=== PATIENT | female | born 1935 | race Caucasian/White ===

== ENCOUNTER 2019-06-05 15:23 | Emergency (ER) | payer OTHER ==
--- OUTSIDE RECORDS SUMMARY | 2019-06-05 15:26 | XMS REPORT | Clinical Summary ---
:1935 Author Organization [facility] Address [address] [place] [address] Care Team Providers Name Role Phone Rene Bay MD Primary Care Provider Allergies Active Allergy Reactions Severity Noted Date Comments Codeine 10/19/2016 Other reaction(s): Other Medications Medication Sig Dispensed Refills Start Date End Date Status aspirin (ECOTRIN) Take 1 tablet 0 Active 81 MG enteric every day by coated tablet oral route. tamsulosin (FLOMAX) Take 1 capsule 0 09/29/2016 Active 0.4 mg by mouth capsule,extended daily. release 24hr FLUoxetine (PROzac) TK 1 C PO QD 2 10/02/2018 Active 20 MG capsule calcium carbonate Take by mouth 0 Active (CALCIUM 500 ORAL) daily. atorvastatin TAKE 1 TABLET 90 tablet 4 04/03/2019 Active (LIPITOR) 80 MG BY MOUTH EVERY tablet DAY alendronate Take 70 mg by 1 04/19/2019 Active (FOSAMAX) 70 MG mouth once a tablet week. simethicone Take by mouth 0 Active (PHAZYME) 250 mg daily. capsule atorvastatin TAKE 1 TABLET 90 tablet 4 01/12/2018 04/03/2019 Discontinued (LIPITOR) 80 MG BY MOUTH EVERY tablet DAY vit Take by mouth. 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 Encounters Date Type Specialty Care Team Description 05/11/2019 Telephone Neurology Ronal Fox MD 05/04/2019 Lab Lab Ronal Fox MD Stenosis of carotid artery, unspecified laterality 05/04/2019 Office Visit Neurology Ronal Fox MD Stenosis of carotid artery, unspecified laterality (Primary Dx) 04/03/2019 Refill Neurology Ronal Fox MD 10/24/2018 Office Visit Neurology Ronal Fox MD Stenosis of carotid artery, unspecified laterality (Primary Dx) 08/31/2018 Transcribe Orders Neurology Ronal Fox MD Bilateral carotid artery stenosis (Primary Dx) after 06/04/2018 Family History Medical History Relation Name Comments Dementia Mother Parkinsonism Sister Multiple sclerosis Son Relation Name Status Comments Mother (Age 80) Sister Son Social History Tobacco Use Types Packs/Day Years Used Date Former Smoker Smokeless Tobacco: Never Used Alcohol Use Drinks/Week oz/Week Comments No Sex Assigned at Date Recorded Not on file Job Start Date Occupation Industry Not on file Not on file Not on file Travel History Travel Start Travel End No recent travel history available. Last Filed Vital Signs Vital Sign Reading Time Taken Blood Pressure 144/65 05/04/2019 10:06 AM CDT Pulse 71 05/04/2019 10:06 AM CDT Temperature - - Respiratory Rate - - Oxygen Saturation - - Inhaled Oxygen Concentration - - Weight 64 kg (141 lb) 05/04/2019 10:06 AM CDT Height 160 cm (5' 3") 05/04/2019 10:06 AM CDT Body Mass Index 24.98 05/04/2019 10:06 AM CDT Plan of Treatment Health Maintenance Due Date Last Done Comments SHINGLES VACCINES (#1) 1986 65+ PNEUMOCOCCAL VACCINE (1 of 2 - PCV13) 2001 INFLUENZA VACCINE 06/29/2019 Procedures Procedure Name Priority Date/Time Associated Comments Diagnosis COMPREHENSIVE Routine 05/04/2019 10:49 Stenosis of carotid Results for this METABOLIC PANEL AM CDT artery, unspecified procedure are in laterality the results section. LIPID PANEL Routine 05/04/2019 10:49 Stenosis of carotid Results for this AM CDT artery, unspecified procedure are in laterality the results section. PV TRANSCRANIAL Routine 10/24/2018 4:00 Bilateral carotid Results for this DOPPLER INTRACRANIAL PM [employer] artery stenosis procedure are in ARTERIES COMPLETE the results section. US CAROTID DUPLEX Routine 10/24/2018 4:00 Bilateral carotid Results for this BILATERAL PM [employer] artery stenosis procedure are in the results section. after 06/04/2018 Results Lipid panel (05/04/2019 10:49 AM CDT) Cholesterol, total 129 <200 mg/dL [facility] [place] HDL cholesterol 55 >50 mg/dL [facility] [place] Triglycerides 52 <150 mg/dL [facility] [place] LDL cholesterol 61 mg/dL (calc) [facility] calculated Comment: [place] Reference range: <100 Desirable range <100 mg/dL for primary prevention; <70 mg/dL for patients with CHD or diabetic patients with > or=2 CHD risk factors. LDL-C is now calculated using the Juni calculation, which is a validated novel method providing better accuracy than the Friedewald equation in the estimation of LDL-C. Ryan RUTLEDGE et al. STEVE. 2013;310(19): 6083-0106 (http://education.Bocom/faq/LTV473) Cholesterol/HDL 2.3 <5.0 (calc) [facility] ratio [place] Non-HDL cholesterol 74 <130 mg/dL [facility] Comment: (calc) [place] For patients with diabetes plus 1 major ASCVD risk factor, treating to a non-HDL-C goal of <100 mg/dL (LDL-C of <70 mg/dL) is considered a therapeutic option. Specimen Blood Resulting Agency Comment Performing Organization Information: Site ID: [id number] Address: [address] [place] [id number] Director: Letitia Montelongo Performing Organization Address City/State/Zipcode Phone [place] [employer] [address] Comprehensive metabolic panel (05/04/2019 10:49 AM CDT) [facility] Glucose 88 65 - 99 [facility] Comment: mg/dL [place] Fasting reference interval BUN, whole blood 14 7 - 25 mg/dL [facility] [place] Creatinine 0.68 0.60 - 0.88 [facility] Comment: mg/dL [place] For patients >49 years of age, the reference limit for Creatinine is approximately 13% higher for people identified as -Micronesian. EGFR Non-Afr. 81 > OR=60 [facility] [place] mL/min/1.73m [place] 2 EGFR 94 > OR=60 [facility] [place] mL/min/1.73m [place] [id number] BUN/creatinine NOT APPLICABLE 6 - 22 [facility] ratio (calc) [place] Sodium 133 (L) 135 - 146 [facility] mmol/L [place] Potassium 5.0 3.5 - 5.3 [facility] mmol/L [place] Chloride 95 (L) 98 - 110 [facility] mmol/L [place] CO2 31 20 - 32 [facility] mmol/L [place] Calcium 9.2 8.6 - 10.4 [facility] mg/dL [place] Protein 6.6 6.1 - 8.1 [facility] g/dL [place] Albumin, S 4.2 3.6 - 5.1 [facility] g/dL [place] Globulin, total 2.4 1.9 - 3.7 [facility] g/dL (calc) [place] Albumin/globulin 1.8 1.0 - 2.5 [facility] ratio (calc) [place] Total bilirubin 1.0 0.2 - 1.2 [facility] mg/dL [place] Alkaline 96 33 - 130 U/L [facility] phosphatase [place] AST 20 10 - 35 U/L [facility] [place] ALT 14 6 - 29 U/L [facility] [place] Specimen Blood Resulting Agency Comment Performing Organization Information: Site ID: [id number] Name: [facility] Address: [address] [place] [id number] Director: Letitia Montelongo Performing Organization Address City/[facility] Phone Number [employer] [place] [phone] Pv transcranial Doppler intracranial arteries (10/24/2018 4:00 PM [employer]ESSION[employer]) Specimen Narrative Performed At Clinical Indications/Diagnosis: [facility] Equipment: [place] PMD 150 Vessel RIGHTLEFT Ophthalmic Artery Antegrade Antegrade Siphon bruit bruit Anterior Cerebral Artery Not Seen Not Seen Middle Cerebral Artery Not Seen Not Seen Posterior Cerebral ArteryNormal Normal Verterbral Artery dampened Normal Basilic Artery Normal Normal TCD MonitoringNegative Negative BHI: >0.69 (normal) Not Seen Not Seen Head Turning Findings: Technically limited study normal distal ICA and dampened to minimal vertibrobasilar flow seen. bilateral suboptimal temporal windows. Negative spontaneous emboli were detected. Physician Interpretation of TCD: 1) There is no stenosis in the distal internal carotid arteries or vertebrobasilar arteries. 2) No hemodynamically significant intracranial stenoses in the major branches of the [place]. 3) No spontaneous emboli were detected during monitoring. 4) The cerebrovascular reserve is normal on breath holding. Recommend ultrasound follow-up in 1-2 years or sooner if symptoms develop. Performing Organization Address City[facility] Phone Number [facility] [id number] [place] [address] Pv carotid duplex (10/24/2018 4:00 PM YOU[employer] PROFESSIONAL) L ECA Prox 8.00 cm/s cm/s [facility] L ECA Prox 178 cm/s cm/s [facility] R ECA Prox 5.00 cm/s cm/s [facility] L ICA Prox 25 cm/s cm/s [facility] L ICA Prox 180 cm/s cm/s [facility] R ICA Prox 38 cm/s cm/s [facility] R ICA Prox 155 cm/s cm/s [facility] L ICA/CCA Ratio 1.6 cm/s [facility] R ICA/CCA Ratio 2.2 cm/s [facility] R CCA Prox 9 cm/s cm/s [facility] R CCA Prox 83 cm/s cm/s [facility] R ICA Dist 22 cm/s cm/s [facility] R ICA Mid 27 cm/s cm/s [facility] L ICA Dist 23 cm/s cm/s [facility] L ICA DIST 106 cm/s cm/s [facility] R Vert Art 16.00 cm/s cm/s [facility] L CCA Dist 22 cm/s cm/s [facility] L CCA Dist 115 cm/s cm/s [facility] R ECA Prox 124.00 cm/s cm/s [facility] L ICA Mid 20 cm/s cm/s [facility] L ICA Mid 108 cm/s cm/s [facility] R ICA Dist 83 cm/s cm/s [facility] R ICA Mid 183 cm/s cm/s [facility] L Vert Art 20.00 cm/s cm/s [facility] L Vert Art 171 cm/s cm/s [facility] R Vert Art 58.00 cm/s cm/s [facility] Specimen Narrative Performed At Physician Interpretation of Carotid Doppler: [facility] 1) There is moderate, calcified plaque in the bilateral carotid arteries with less than 50% stenosis. 2) There are no hemodynamically significant stenoses. 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 4) The left vertebral artery flows antegrade. Recommend ultrasound follow-up in 1-2 years or sooner if symptoms develop. Performing Organization Address City/State/Zipcode Phone Number [facility] [address] [place] [address] after 06/04/2018 (Home) [place] [address] Advance Directives Patient has advance care planning documents on file. For more information, please contact:John Harmon[address] [place] [address]
[2019-06-05 16:16] LABS: Absolute Lymphocytes (CBC) 1.6 K/uL (0.7-4.9); Basophils % 0.4 % (0-1.3); Eosinophils % 0.3 % (0-4.4); Hematocrit 40.3 % (36.0-45.0); Lymphocytes % 13.3 % (15.3-44.8); MPV 8.6 fL (7.6-11.3); Monocytes % 12.8 % (3.3-12.3); RBC Red Blood Cell Count 4.28 M/uL (3.86-4.86)
[2019-06-05 16:17] LABS: Protime INR 1.06
--- NOTE | 2019-06-05 16:19 | EKG ---
Test Date: 2019-06-05 Test Time: 15:59:45 Manufacturing Mechanic: DENG MEASUREMENT RESULTS: Intervals: Rate: 69 IA: 168 QRSD: 86 QT: 396 QTc: 424 [place]: P: 74 IA: 168 QRS: 80 T: 66 INTERPRETIVE STATEMENTS: Normal sinus rhythm Possible Left atrial enlargement Borderline ECG No previous ECG available for comparison Electronically Signed On 06-05-19 16:19:16 CDT by Jered Carpenter
[2019-06-05 16:36] LABS: ALT/SGPT 21 U/L (12-78); AST/SGOT 19 U/L (15-37); Albumin 3.5 g/dL (3.4-5.0); Alkaline Phosphatase 75 U/L (45-117); BUN Blood Urea Nitrogen 16 mg/dL (7-18); Bicarbonate 27 mmol/L (21-32); Bilirubin Direct 0.3 mg/dL (0-0.2); Bilirubin Total 1.3 mg/dL (0.2-1.0); Glucose Level 88 mg/dL (74-106); Magnesium 2.2 mg/dL (1.8-2.4); NT PRO-BNP 124 pg/mL (<450); Protein, Total 7.1 g/dL (6.4-8.2); Sodium Level 132 mmol/L (136-145); Troponin (Emerg Dept Use Only) < 0.02 ng/mL (0.0-0.045)
--- NOTE | 2019-06-05 17:07 | RAD REPORT ---
EXAM DESCRIPTION: Karime Single View06/05/2019 4:56 pm CLINICAL HISTORY: sob COMPARISON: November 2017 FINDINGS: The lungs appear clear of acute infiltrate. The heart is normal size IMPRESSION: No acute abnormalities displayed
[2019-06-05 17:21] LABS: Blood Morphology Comment NOT SEEN (NOT SEEN); Platelet Estimate ADEQ
[2019-06-05 18:07] LABS: Urine Blood 1+ (NEG); Urine Glucose NEGATIVE (NEG); Urine Protein TRACE (NEG)
--- NOTE | 2019-06-05 18:16 | ER ---
Nurse's Notes [facility] Name: Drea Diez Age: 84 yrs Sex: Female : 1935 Arrival Date: 06/05/2019 Time: 15:24 Bed 3 Private MD: Rene Bay F Diagnosis: Acute cystitis Presentation: 06/05 15:30 Presenting complaint: Patient states: "[place] the [place] and I always check my blood aa5 pressure there so today I checked it and it was 68/42 and then 69/43 and my pulse was 113". Pt states "I've been feeling dizzy and exhausted for a while now". 15:30 Transition of care: patient was not received from another setting of care. Onset of aa5 symptoms was June 05, 2019. Risk Assessment: Do you want to hurt yourself or someone else? Patient reports no desire to harm self or others. Care prior to arrival: None. 15:30 Acuity: KAMILA 2 aa5 15:30 Method Of Arrival: Wheelchair aa5 16:05 Initial Sepsis Screen: Does the patient meet any 2 criteria? No. Patient's initial sv sepsis screen is negative. Does the patient have a suspected source of infection? No. Patient's initial sepsis screen is negative. Historical: - Allergies: 15:30 No Known Allergies; aa5 - Home Meds: 15:30 None [Active]; aa5 - PMHx: 15:30 None; aa5 - PSHx: 15:30 Hysterectomy; Bladder suspension; aa5 - Immunization history:: Adult Immunizations up to date. - Ebola Screening: : No symptoms or risks identified at this time. - Social history:: Smoking status: Patient/guardian denies using tobacco. Screenin:05 Abuse screen: Denies threats or abuse. Denies injuries from another. Nutritional sv screening: No deficits noted. Tuberculosis screening: No symptoms or risk factors identified. Fall Risk None identified. Assessment: 16:00 General: Appears in no apparent distress. uncomfortable, well developed, Behavior is sv calm, cooperative, appropriate for age. Pain: Denies pain. Neuro: Level of Consciousness is awake, alert, obeys commands, Oriented to person, place, time, situation, Moves all extremities. Full function Speech is normal, Reports weakness. Respiratory: Airway is patent Respiratory effort is even, unlabored, Respiratory pattern is regular, symmetrical. Derm: Skin is normal. 18:44 Reassessment: Patient appears in no apparent distress at this time. No changes from sv previously documented assessment. Patient and/or family updated on plan of care and expected duration. Pain level reassessed. Patient is alert, oriented x 3, equal unlabored respirations, skin warm/dry/pink. Vital Signs: 15:32 BP 70 / 54; Pulse 86; Resp 16 S; Temp 98.1(O); Pulse Ox 98% on R/A; Pain 0/10; aa5 16:05 BP 113 / 56 RA Supine (auto/reg); Pulse 69; sv 16:07 BP 125 / 74 RA Sitting (auto/reg); Pulse 71; sv 16:09 BP 112 / 49 RA Standing (auto/reg); Pulse 80; sv 17:11 BP 149 / 72; Pulse 70; Resp 17 S; Pulse Ox 98% on R/A; sg 18:04 BP 159 / 86; Pulse 70; Resp 12; Pulse Ox 100% ; sv ED Course: 15:24 Patient arrived in ED. rg4 15:24 Rene Bay MD is Private Physician. rg4 15:37 Arm band placed on Patient placed in an exam room, on a stretcher. aa5 15:40 He Medel MD is Attending Physician. ps1 15:44 Triage completed. aa5 16:02 iMlady Martel, RN is Primary Nurse. sv 16:05 Patient has correct armband on for positive identification. Placed in gown. Bed in low sv position. Call light in reach. Side rails up X 1. Adult w/ patient. monitor tech on. Pulse ox on. NIBP on. Door closed. Head of bed elevated. 16:08 Initial lab(s) drawn, by me, sent to lab. EKG done, by plasma processing technician. reviewed by He Medel MD. Inserted saline lock: 20 gauge in left antecubital area, using aseptic technique. Blood collected. 16:16 Awaiting lab results. sv 16:56 XRAY Chest (1 view) In Process Unspecified. EDMS 17:26 ED physician to see patient. sv 18:12 Rene Bay MD is Referral Physician. ps1 18:44 No provider procedures requiring assistance completed. IV discontinued, intact, sv bleeding controlled, No redness/swelling at site. Pressure dressing applied. Administered Medications: No medications were administered Outcome: 18:16 Discharge ordered by . ps1 18:44 Discharged to home ambulatory, with family. sv 18:44 Condition: stable 18:44 Discharge instructions given to patient, Instructed on discharge instructions, follow up and referral plans. medication usage, Demonstrated understanding of instructions, follow-up care, medications, Prescriptions given X 1. 18:45 Patient left the ED. sv Addendum: 06/08/2019 11:17 Addendum: Culture Results: Positive urine culture. No further action required. Bacteria i w sensitive to prescribed antibiotic. Signatures: Dispatcher [employer] Milady Peña RN RN sv Gay, Steven, RN RN sg Williams, Irene, RN RN iw Solis, Maria ms Calderon, Audri, ONEYDA [email or web address] Justine [email or web address] He Medel MD MD ps1
--- NOTE | 2019-06-05 18:16 | EDPHYS ---
Physician Documentation [facility] Name: Drea Diez Age: 84 yrs Sex: Female : 1935 Arrival Date: 06/05/2019 Time: 15:24 Bed 3 Private MD: Rene Bay F ED Physician He Medel HPI: 06/05 16:01 This 84 yrs old Female presents to ER via Wheelchair with complaints of Blood ps1 Pressure Problem, lightheaded. 16:01 patient states that she has had intermittent periods of hypotension and lightheaded, ps1 states that she experiences symptoms when standing. She is on medication to assist her in using the bathroom. Went to PCP today and evaluated Dr. Bay. Patient remained symptomatic. States that she had an episode of vomiting a week ago. No CP, tightness, pressure. No diaphoresis. No room spinning. . Historical: - Allergies: 15:30 No Known Allergies; aa5 - Home Meds: 15:30 None [Active]; aa5 - PMHx: 15:30 None; aa5 - PSHx: 15:30 Hysterectomy; Bladder suspension; aa5 - Immunization history:: Adult Immunizations up to date. - Ebola Screening: : No symptoms or risks identified at this time. - Social history:: Smoking status: Patient/guardian denies using tobacco. ROS: 16:01 Constitutional: Negative for fever, chills, and weight loss, Eyes: Negative for injury, ps1 pain, redness, and discharge, Cardiovascular: Negative for chest pain, palpitations, and edema, Respiratory: Negative for shortness of breath, cough, wheezing, and pleuritic chest pain, Abdomen/GI: Negative for abdominal pain, nausea, vomiting, diarrhea, and constipation, MS/Extremity: Negative for injury and deformity, Skin: Negative for injury, rash, and discoloration, Psych: Negative for depression, anxiety, suicide ideation, homicidal ideation, and hallucinations. 16:01 Neuro: Positive for near syncope. Exam: 16:01 Constitutional: This is a well developed, well nourished patient who is awake, alert, ps1 and in no acute distress. Head/Face: Normocephalic, atraumatic. Eyes: Pupils equal round and reactive to light, extra-ocular motions intact. Lids and lashes normal. Conjunctiva and sclera are non-icteric and not injected. ENT: Nares patent. No nasal discharge, no septal abnormalities noted. Tympanic membranes are normal and external auditory canals are clear. Oropharynx with no redness, swelling, or masses, exudates, or evidence of obstruction, uvula midline. Mucous membranes moist. Chest/axilla: Normal chest wall appearance and motion. Nontender with no deformity. No lesions are appreciated. Cardiovascular: Regular rate and rhythm. No gallops, murmurs, or rubs. Normal PMI, no JVD. No pulse deficits. Respiratory: Lungs have equal breath sounds bilaterally, clear to auscultation and percussion. No rales, rhonchi or wheezes noted. No increased work of breathing, no retractions or nasal flaring. Abdomen/GI: Soft, non-tender, with normal bowel sounds. No distension or tympany. No guarding or rebound. No evidence of tenderness throughout. Skin: Warm, dry with normal turgor. Normal color with no rashes, no lesions, and no evidence of cellulitis. MS/ Extremity: Pulses equal, no cyanosis. Neurovascular intact. Full, normal range of motion. Neuro: Awake and alert, GCS 15, oriented to person, place, time, and situation. Cranial nerves II-XII grossly intact. Sensory grossly intact. Vital Signs: 15:32 BP 70 / 54; Pulse 86; Resp 16 S; Temp 98.1(O); Pulse Ox 98% on R/A; Pain 0/10; aa5 16:05 BP 113 / 56 RA Supine (auto/reg); Pulse 69; sv 16:07 BP 125 / 74 RA Sitting (auto/reg); Pulse 71; sv 16:09 BP 112 / 49 RA Standing (auto/reg); Pulse 80; sv 17:11 BP 149 / 72; Pulse 70; Resp 17 S; Pulse Ox 98% on R/A; sg 18:04 BP 159 / 86; Pulse 70; Resp 12; Pulse Ox 100% ; sv MDM: 16:07 Patient medically screened. ps1 18:11 Data reviewed: vital signs, nurses notes, lab test result(s), EKG, radiologic studies, ps1 and as a result, I will discharge patient. Counseling: I had a detailed discussion with the patient and/or guardian regarding: the historical points, exam findings, and any diagnostic results supporting the discharge/admit diagnosis, lab results, radiology results, the need for outpatient follow up. 06/05 16:00 Order name: CBC with Diff; Complete Time: 17:[address] [facility] 06/05 16:00 Order name: LFT's; Complete Time: 16:[address] [facility] 06/05 16:00 Order name: Magnesium; Complete Time: 16:[address] [facility] 06/05 16:00 Order name: NT PRO-BNP; Complete Time: 16:[address] [facility] 06/05 16:00 Order name: PT-INR; Complete Time: 16:[address] [facility] 06/05 16:00 Order name: Troponin (emerg Dept Use Only); Complete Time: 16:[address] [facility] 06/05 16:00 Order name: XRAY Chest (1 view); Complete Time: 17:[address] [facility] 06/05 16:00 Order name: EKG; Complete Time: 16:[address] [facility] 06/05 16:00 Order name: Cardiac monitoring; Complete Time: 16:[address] [facility] 06/05 16:00 Order name: CMP; Complete Time: 16:[address] [facility] 06/05 16:19 Order name: Manual Differential; Complete Time: 17:24 [facility] 06/05 18:01 Order name: Urine Microscopic Only [facility] 06/05 18:02 Order name: Urine Dipstick--Ancillary (enter results); Complete Time: 18:09 [facility] 06/05 18:30 Order name: Urine Culture [facility] 06/05 16:00 Order name: EKG - Nurse/Tech; Complete Time: 16:[address] [facility] 06/05 16:00 Order name: IV Saline Lock; Complete Time: 16:[address] [facility] 06/05 16:00 Order name: Labs collected and sent; Complete Time: 16:[address] [facility] 06/05 16:00 Order name: O2 Per Protocol; Complete Time: 16:[address] [facility] 06/05 16:00 Order name: O2 Sat Monitoring; Complete Time: 16:[address] [facility] 06/05 16:00 Order name: Orthostatics; Complete Time: 16:[address] [facility] 06/05 16:00 Order name: Urine Dipstick-Ancillary (obtain specimen); Complete Time: 18:04 ps1 EC:59 Rate is 69 beats/min. Rhythm is regular. QRS [place] is Normal. [place] interval is normal. QRS ps1 interval is normal. QT interval is normal. No Q waves. T waves are Normal. No ST changes noted. Clinical impression: Normal ECG. Interpreted by me. Administered Medications: No medications were administered Disposition: 06/05/19 18:16 Discharged to Home. Impression: Acute cystitis. - Condition is Stable. - Prescriptions for Keflex 500 mg Oral Capsule - take 1 capsule by ORAL route every 8 hours for 10 days; 30 capsule. - Medication Reconciliation Form, Thank You Letter, Antibiotic Education, Prescription Opioid Use form. - Follow up: Rene Bay MD; When: 48 Hours; Reason: Further diagnostic work-up, Recheck today's complaints, Continuance of care. Follow up: Emergency Department; When: As needed; Reason: Worsening of condition. - Problem is new. - Symptoms are unchanged. Signatures: Dispatcher [employer] Milady Peña RN RN Liz Sutton RN RN aa5 He Medel MD MD ps1 Corrections: (The following items were deleted from the chart) 18:45 18:16 06/05/2019 18:16 Discharged to Home. Impression: Acute cystitis. Condition is sv Stable. Forms are Medication Reconciliation Form, Thank You Letter, Antibiotic Education, Prescription Opioid Use. Follow up: Rene Bay; When: 48 Hours; Reason: Further diagnostic work-up, Recheck today's complaints, Continuance of care. Follow up: Emergency Department; When: As needed; Reason: Worsening of condition. Problem is new. Symptoms are unchanged. ps1
[2019-06-05 18:28] LABS: Urine Bacteria >50 /HPF (<20); Urine RBC <5 /HPF (NONE SEEN)
[2019-06-05 18:29] LABS: Urine Culture Reflex Order REFLEXED
== END 2019-06-05 18:45 | disposition home or self-care (01) ==
LOC: ER 15:23
DX: N30.00 Acute cystitis without hematuria (principal)
CPT/HCPCS: 36415; 71045; 80053; 80076; 81003; 81015; 83735; 83880; 84484; 85025; 85610; 87077; 87086; 87088; 87186; 93005; 99284

== ENCOUNTER 2022-10-05 06:30 | Day surgery (SDC) | payer OTHER ==
[2022-10-01 10:59] LABS: Absolute Lymphocytes (CBC) 1.9 K/uL (0.7-4.9); Hematocrit 39.3 % (36.0-45.0); Lymphocytes % 29.1 % (15.3-44.8); MCV 91.8 fL (80-100); MPV 7.7 fL (7.6-11.3); RBC Red Blood Cell Count 4.28 M/uL (3.86-4.86)
[2022-10-01 11:06] LABS: Protime INR 1.05
--- NOTE | 2022-10-01 11:07 | RAD REPORT ---
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 FINDINGS: The lungs are clear of an acute infiltrate, mass, failure or volume overload finding. Gran uloma seen in the upper left lung field. Prominent interstitial lung pattern matches comparison. Heart size is normal and central vasculature is within normal limits. No pleural effusion or pneu mothorax seen. Bones are osteopenic. Approximately 50% compression fractures are present in the T11 and T12 vertebra e unchanged from March 2022 imaging. No lytic or blastic component seen. No acute aortic finding. IMPRESSION: No acute cardiopulmonary process. Lower thoracic compression fractures stable from March imaging.
[2022-10-01 11:15] LABS: Potassium 4.8 mmol/L (3.5-5.1)
[2022-10-05] MEDS ORDERED: MIDAZOLAM HCL 2 MG/2 ML INJ ONE (06:40)
[2022-10-05] MEDS ORDERED: LIDOCAINE 1% 20 ML MDV ONE (06:40)
[2022-10-05] MEDS ORDERED: HEPA 1000U/500MLS 2,000 UNIT/1,000 ML BAG IV ONE (06:40)
[2022-10-05] MEDS ORDERED: FENTANYL CITR 100 MCG/2 ML ONE (06:40)
[2022-10-05] MEDS ORDERED: NITROGLYCERIN 100 MCG/ML SYR (for cath lab use only) IV ONE (06:41)
[2022-10-05] MEDS ORDERED: NITROGLYCERIN/D5W 25 MG/250 ML BTL IV ONE (06:41)
[2022-10-05] MEDS ORDERED: ATROPINE SULF 1 MG/10 ML SYR IV ONE (06:41)
[2022-10-05] MEDS ORDERED: NA CHLORIDE 0.9% 0 ML IV ONE (06:42)
[2022-10-05] MEDS ORDERED: NA CHLORIDE 0.9% 500 ML ONE (06:51)
[2022-10-05 09:37] VITALS: BP 130/54; O2SAT 100
--- NOTE | 2022-10-05 12:18 | EKG ---
Test Date: 2022-10-01 Test Time: 10:37:32 Marine Engine Mechanic: GERARDO MEASUREMENT RESULTS: Intervals: Rate: 74 NM: 178 QRSD: 134 QT: 406 QTc: 450 Wilmont: P: 77 NM: 178 QRS: 48 T: 97 INTERPRETIVE STATEMENTS: Normal sinus rhythm Possible Left atrial enlargement Left bundle branch block Abnormal ECG Compared to ECG 06/05/2019 15:59:45 Left bundle-branch block now present Electronically Signed On 10-05-22 12:14:12 CATALOG LIBRARIAN by Scott Friedman
--- NOTE | 2022-10-05 19:14 | OP ---
Date of Procedure: 10/05/2022 Surgeon: Jered Carpenter MD Room Cleaner: Ms. John Paul Meeks. Procedures Performed: She underwent left heart catheterization, selective coronary arteriogram, comm on femoral artery angiogram, selective bilateral carotid. Indication: CAD and CVD with positive stress test, positive carotid Doppler. History Of Present Illness: Ms. Diez is 87. No significant history. Recent abnormal stress test b ecause of atypical chest pain. Recent abnormal carotid Doppler. Description Of Procedure: Brought to the [employer] today as an outpatient, prepped and draped in rout ine sterile fashion. Given Versed and fentanyl for sedation. 6-Turkmen sheath introduced in the righ t common femoral artery successfully. We used a Seldinger technique and 10 cc of Xylocaine. Angiogr aphy there was normal. Angio-Seal was used to close the case. JL4 and JR4 catheters were used to do the left heart catheterization. She was found to be codominant. She had diffuse plaquing in the LA D, circumflex and RCA. She had a 50% distal stenosis of the LAD. JR4 catheter was used to select th e common carotid artery on the right and the left. She had normal bilateral common carotid arteries. She had a 60% stenosis in the right ICA, 90% stenosis in the right ECA, 50% stenosis in the left IC A. There were no complications. Estimated Blood Loss: 5 cc. Postoperative Diagnosis: Moderate CAD and CVD. Plan: For medical therapy. We will start her on statins high dose. She will be at bedrest for 2 ho urs after the procedure, and she will go home and see us in the office in 2 weeks. ELIZABETH/CARLOS Voice ID: [id number] Report ID: [id number]
== END 2022-10-05 09:40 | disposition home or self-care (01) ==
LOC: CCL 06:30
DX: I65.23 Occlusion and stenosis of bilateral carotid arteries (principal); I25.10 Atherosclerotic heart disease of native coronary artery without angina pectoris; I44.7 Left bundle-branch block, unspecified
CPT/HCPCS: 36222; 36415; 71046; 80048; 85025; 85610; 85730; 93005; 93454; C1760; C1893; G0269; J0583; J1644; J2250; J3010; J7040

== ENCOUNTER 2024-12-11 09:42 | Inpatient (IN) | payer OTHER ==
[2024-12-11 10:17] LABS: Absolute Lymphocytes (CBC) 0.8 K/uL (0.7-4.9); Absolute Monocytes 1.6 K/uL (0.1-1.3); Absolute Neutrophil 14.3 K/uL (1.8-8.0); Basophils % 0.2 % (0-1.3); Hematocrit 39.6 % (36.0-45.0); Hemoglobin 13.2 g/dL (12.0-15.0); Lymphocytes % 4.7 % (15.3-44.8); MCHC 33.4 g/dL (32.0-36.0); MCV 92.7 fL (80-100); MPV 8.2 fL (7.6-11.3); Monocytes % 9.4 % (3.3-12.3); Neutrophils % 85.7 % (41.7-73.7); Nucleated Red Blood Cells % 0.1 % (0-0); Platelets 260 thou/uL (152-406); RBC Red Blood Cell Count 4.27 M/uL (3.86-4.86); Red Cell Distribution Width 12.7 % (12.1-15.2)
[2024-12-11 10:29] LABS: Albumin 2.9 g/dL (3.4-5.0); Albumin/Globulin Ratio 0.7 (1.1-1.8); Anion Gap 7.5 mEq/L (5.0-15.0); Bilirubin Total 1.5 mg/dL (0.2-1.0); Potassium 3.5 mEq/L (3.5-5.1); Protein, Total 6.9 g/dL (6.4-8.2)
--- NOTE | 2024-12-11 10:48 | RAD REPORT ---
EXAMINATION: CT HEAD WITHOUT CONTRAST CT CERVICAL SPINE WITHOUT CONTRAST CLINICAL INDICATION: Head and neck injury status post fall. Head and neck pain TECHNIQUE: Axial CT images from the skull base to the vertex without intravenous contrast. Axial CT i mages through the cervical spine were obtained without intravenous contrast. Sagittal and coronal reformatted images were created from the data set. Coronal and sagittal reformatted images were creat ed from the data set. One or more of the following dose reduction techniques were used: Automated exposure control, adjustment of the mA and/or kV according to patient size, and/or iterative reconstr uction. Unless otherwise specified, incidental findings do not require dedicated imaging follow-up. [id number]. Comparison: 2017 MRI brain FINDINGS: An intracranial bleed is not seen. Ventricles are normal in caliber. Moderate low-density within periventricular, deep and subcortical white matter may represent ischemic changes secondary to small vessel disease. No extra-axial fluid collection. Fluid within the sphenoid sinus may indicate acute sinusitis. No fracture or dislocation is seen involving the cervical spine. IMPRESSION: No acute intracranial abnormality noted A cervical fracture is not seen. If the patient continues to have symptoms to suggest acute GREENSKEEPER HEAD/spinal pathology then MRI would be rec ommended
--- NOTE | 2024-12-11 10:52 | RAD REPORT ---
EXAMINATION: CT ABDOMEN AND PELVIS WITHOUT CONTRAST CLINICAL INDICATION: Abdominal pain status post fall TECHNIQUE: CT abdomen and pelvis was performed, as per department protocol. IV contrast and oral was not administered.Axial, sagittal and coronal reconstructions were obtained. One or more of the following dose reduction techniques were used: Automated exposure control, adjustment of the mA and/o r kV according to the patient size, and/or iterative reconstruction. Unless otherwise specified, incidental findings do not require dedicated imaging follow-up. [id number]. COMPARISON: 2021 FINDINGS: The lack of intravenous and oral contrast limits evaluation of solid organs, vessels and bowel. The liver, spleen, pancreas, adrenals, bladder and kidneys appear grossly normal No evidence of diverticulitis Chronic compression deformities involve T11, T12 and L4 vertebral bodies. Mild chronic anterior sublu xation L3 on L4. Mild anterior chronic subluxation L4 on L5. Spondylosis lumbar spine results in spinal stenosis The bladder is distended. A moderate amount of stools present throughout the colon IMPRESSION: No acute traumatic injury involving the abdomen/pelvis seen
--- NOTE | 2024-12-11 11:00 | RAD REPORT ---
Procedure: Chest Single View HISTORY: Chest pain COMPARISON: 2021 FINDINGS: The lungs appear clear of acute infiltrate. No significant pleural effusion noted. The heart is normal size. IMPRESSION: No acute abnormality is displayed.
[2024-12-11 11:15] LABS: Sqamous Epithelial None Seen /HPF (None Seen); Transitional Epithelial <5 /HPF (None Seen); Urine Bacteria >50 /HPF (<20); Urine Bilirubin NEGATIVE (Negative); Urine Blood Negative (Negative); Urine Clarity Extremely Turbid (Clear); Urine Color Light-Yellow (Yellow); Urine Culture Reflex Order REFLEXED; Urine Glucose NEGATIVE (Negative); Urine Ketones NEGATIVE (Negative); Urine Microscopic Reflex YN ORDER UMIC; Urine Mucus Slight /HPF (None Seen); Urine Nitrite 2+ (Negative); Urine Protein NEGATIVE (Negative); Urine RBC <5 /HPF (None Seen); Urine Urobilinogen Normal (Normal)
[2024-12-11 11:20] LABS: Differential Total Cells Count 100; Eosinophils 1 % (0-3); Lymphocytes 7 % (15-42); Monocytes 8 % (0-10); Segmented Neutrophils 84 % (40-80)
[2024-12-11 11:21] LABS: Blood Morphology Comment NOT SEEN (NOT SEEN); Platelet Estimate ADEQ
--- NOTE | 2024-12-11 11:54 | EDPHYS ---
Physician Documentation [facility] Name: Drea Diez Age: 89 yrs Sex: Female : 1935 Arrival Date: 12/11/2024 Time: 09:42 Bed 7 Private MD: ED Physician Pelon Jacinto HPI: 12/11 09:49 This 89 yrs old Female presents to ER via EMS with complaints of Fall Injury. ms3 09:49 . ms3 10:16 Ms. Fitch presents to the Emergency Department via [facility] with generalized pain ms3 affecting her head, back, legs, and arms. She reports that the pain has been present for the past few days. She rates her pain as severe. She mentions feeling dehydrated and was noted to be tachycardic upon arrival. She received 15 mg of Toradol via EMS[facility], but she is unsure if it has provided any relief. . Historical: - Allergies: 13:00 No Known Allergies; ap3 - Immunization history:: Adult Immunizations unknown. - Infectious Disease History:: Denies. - Social history:: Smoking status: unknown. ROS: 09:49 Constitutional: Negative for fever, and chills. Cardiovascular: Negative for chest ms3 pain, and palpitations. Respiratory: Negative for shortness of breath, cough, wheezing, and pleuritic chest pain, Abdomen/GI: Negative for abdominal pain, nausea, vomiting, diarrhea, and constipation, 09:49 Back: Positive for Back pain, 09:49 MS/extremity: Positive for Body pain, Exam: 09:49 Constitutional: This is a well developed, well nourished patient who is awake, alert, ms3 and in no acute distress. Head/Face: Normocephalic, atraumatic. Cardiovascular: Regular rate and rhythm with a normal S1 and S2. No gallops, murmurs, or rubs. Normal PMI, no JVD. No pulse deficits. Respiratory: Lungs have equal breath sounds bilaterally, clear to auscultation and percussion. No rales, rhonchi or wheezes noted. No increased work of breathing, no retractions or nasal flaring. 09:49 Abdomen/GI: Inspection: abdomen appears normal, Bowel sounds: normal, Palpation: moderate abdominal tenderness, in the right upper quadrant, left upper quadrant, right lower quadrant and left lower quadrant, 12:11 ECG was reviewed by the Attending Physician. ms3 Vital Signs: 09:47 BP 151 / 87; Pulse 104; Resp 18; Temp 98.8(O); Pulse Ox 100% on R/A; ap3 13:06 BP 151 / 72; Pulse 102; Resp 17; Pulse Ox 96% on R/A; ap3 13:40 BP 143 / 77; Pulse 104; Pulse Ox 99% on R/A; ap3 MDM: 09:45 Medical Screening Exam initiated ms3 09:49 Differential diagnosis: closed head injury, contusion, fracture, sprain, strain. ms3 09:57 ED course: Patient's family at bedside stating patient hit her head while carrying ms3 [place] boxes on Wednesday and fell down on Wednesday.. 13:48 Data reviewed: vital signs, nurses notes, lab test result(s), EKG, radiologic studies, ms3 and as a result, I will admit patient. Consideration of Admission/Observation Patient was admitted/placed on observation. I considered the following discharge prescriptions or medication management in the emergency department Medications were administered in the Emergency Department. See MAR. Independent interpretation of the following test(s) in the Emergency Department EKG: See my EKG interpretation above. Counseling: I had a detailed discussion with the patient and/or guardian regarding the historical points, exam findings, and any diagnostic results supporting the discharge/admit diagnosis, lab results, radiology results, the need for further work-up and treatment in the hospital. 12/11 09:47 Order name: CBC with Diff; Complete Time: 11:21 ms3 12/11 09:47 Order name: Urinalysis w/ reflexes; Complete Time: 11:16 ms3 12/11 09:47 Order name: CMP; Complete Time: 11:03 ms3 12/11 10:35 Order name: Manual Differential; Complete Time: 11:21 EDMS 12/11 11:05 Order name: Blood Culture Adult (2) ms3 12/11 11:05 Order name: Lactate w/ 2H reflex if indic.; Complete Time: 12:19 ms3 12/11 11:05 Order name: Protime (+inr); Complete Time: 13:44 ms3 12/11 11:05 Order name: Ptt, Activated; Complete Time: 13:44 ms3 12/11 11:19 Order name: Urine Culture EDDC 12/11 12:55 Order name: CBC with Automated Diff EDDC 12/11 12:55 Order name: Comprehensive Metabolic Panel EDDC 12/11 09:47 Order name: CT Head C Spine; Complete Time: 11:03 ms3 12/11 09:47 Order name: XRAY Chest (1 view); Complete Time: 11:03 ms3 12/11 10:06 Order name: CT Abd/Pelvis - Without Contrast; Complete Time: 11:03 ap3 12/11 12:55 Order name: Physical Therapy Consult EDDC 12/11 09:47 Order name: Labs collected and sent; Complete Time: 09:59 ms3 12/11 11:05 Order name: Accucheck; Complete Time: 11:08 ms3 12/11 11:05 Order name: Cardiac monitoring; Complete Time: 11:08 ms3 12/11 11:05 Order name: EKG - Nurse/Tech; Complete Time: 12:13 ms3 12/11 11:05 Order name: IV Saline Lock - Large Bore; Complete Time: 11:08 ms3 12/11 11:05 Order name: O2 Per Protocol; Complete Time: 11:07 ms3 12/11 11:05 Order name: O2 Sat Monitoring; Complete Time: 11:07 ms3 12/11 11:05 Order name: Vital Signs; Complete Time: 11:07 ms3 EC:11 Rate is 103 beats/min. Rhythm is regular. QRS Star is Normal. NJ interval is normal. ms3 Clinical impression: NSR w/ Non-specific ST/T Changes and LBBB. Interpreted by me. Reviewed by me. Administered Medications: 12:48 Drug: Rocephin IV 1 grams IV at calculated rate once; Given slow IV push per pharmacy ap3 instructions Route: IV; Rate: calculated rate; Site: right antecubital; 13:06 Follow up: IV Status: Completed infusion ap3 Disposition Summary: 12/11/24 11:53 Hospitalization Ordered Notes: Hospitalization Status: Inpatient Admission ms3 Provider: Maite Reddy ms3 Location: Telemetry/MedSurg (Inpatient) ms3 Condition: Stable ms3 Problem: new ms3 Symptoms: are unchanged ms3 Bed/Room Type: Standard il3 Room Assignment: 431(12/11/24 12:56) bd Diagnosis - UTI/ Urinary tract infection, site not specified ms3 - Fall on same level, unspecified ms3 - Hypo-osmolality and hyponatremia ms3 Forms: - Medication Reconciliation Form ms3 - SBAR form ms3 - Leadership Thank You Letter ms3 Critical care time excluding procedures: 13:48 Critical care time: Bedside Care: 30 minutes, Consultation: 5 minutes. Total time: 35 ms3 minutes Signatures: Dispatcher [employer] EDMS Rosi Dillon Amanda, RN RN ap3 Pelon Jacinto DO DO ms3 Corrections: (The following items were deleted from the chart) 10:20 09:47 Abdomen Pelvis W Con+CT.RAD.BRZ ordered. EDMS EDMS 11:05 11:05 BLOOD CULTURE*+BA.LAB.BRZ ordered. EDMS EDMS 11:05 11:05 LACTATE+C.LAB.BRZ ordered. EDMS EDMS 11:05 11:05 PROTIME (+INR)+COAG.LAB.BRZ ordered. EDMS EDMS 11:05 11:05 PTT, ACTIVATED+COAG.LAB.BRZ ordered. EDMS EDMS 12:12 11:51 ECG was reviewed by the Attending Physician. ms3 ms3 12:12 11:51 Rate is 74 beats/min. Rhythm is regular. QRS Star is Normal. NJ interval is ms3 normal. QRS interval is normal. Clinical impression: NSR w/ Non-specific ST/T Changes. Interpreted by me. Reviewed by me. ms3 12:56 11:53 ms3 bd
--- NOTE | 2024-12-11 11:54 | ER ---
Nurse's Notes [facility] Name: Drea Diez Age: 89 yrs Sex: Female : 1935 Arrival Date: 12/11/2024 Time: 09:42 Bed 7 Private MD: Diagnosis: UTI/ Urinary tract infection, site not specified;Fall on same level, unspecified;Hypo-osmolality and hyponatremia Presentation: 12/11 09:47 Chief complaint: EMS states: patient fell yesterday, and possibly hit her head. patient ap3 was complaining to EMS stating "everything hurts". Coronavirus screen: At this time, the client does not indicate any symptoms associated with coronavirus-19. Ebola Screen: No symptoms or risks identified at this time. Initial Sepsis Screen: Does the patient meet any 2 criteria? HR > 90 bpm. Does the patient have a suspected source of infection? No. Patient's initial sepsis screen is negative. Risk Assessment: Do you want to hurt yourself or someone else? Patient reports no desire to harm self or others. Onset of symptoms was December 10, 2024. Mechanism of Injury: Fall. Transition of care: patient was not received from another setting of care. 09:47 Method Of Arrival: EMS: [facility] ap3 09:47 Acuity: KAMILA 3 ap3 09:47 Care prior to arrival: Medication(s) given: Normal saline infusion, Toradol 15mg IV IV ap3 initiated. 20 GA, in the right antecubital area. Triage Assessment: 09:49 General: Appears uncomfortable, Behavior is calm, cooperative. Pain: Complains of pain ap3 in head, back and neck. Neuro: Level of Consciousness is awake, alert, obeys commands, Oriented to person, place, time. Neuro: Oriented to EMS states family reported patient fell, patient states "I didn't fall or nothin". Cardiovascular: Patient's skin is warm and dry. Respiratory: Airway is patent Respiratory effort is even, unlabored, Respiratory pattern is regular, symmetrical. Historical: - Allergies: 13:00 No Known Allergies; ap3 - Immunization history:: Adult Immunizations unknown. - Infectious Disease History:: Denies. - Social history:: Smoking status: unknown. Screenin:50 Abuse screen: Denies threats or abuse. Nutritional screening: No deficits noted. ap3 Tuberculosis screening: No symptoms or risk factors identified. 13:06 [facility] ED Fall Risk Assessment (Adult) History of falling in the last 3 months, ap3 including since admission Yes- fall prone (multiple falls) (3 pts) Confusion or Disorientation No (0 pts) Intoxicated or Sedated No (0 pts) Impaired Gait Yes (1 pt) Mobility Assist Device Used No (0 pt) Altered Elimination No (0 pt) Score/Fall Risk Level 3 or more points = High Risk Oriented to surroundings, Maintained a safe environment, Educated pt \\T\\ family on fall prevention, incl call for assistance when getting out of bed, Assessed \\T\\ reinforced patient's understanding of fall precautions, Hourly rounding (assess needs \\T\\ fall precautionary measures) done, Used ambulatory aids as needed (educated on \\T\\ assisted with), Used gait belt as appropriate Implemented a Fall Risk Plan of Care, Remained w/in arm's length of patient and in sight while toileting, Offered frequent toileting (1:1 observation), Remained with patient while ambulating, Utilized family, sitter, or virtual transit operations supervisor as indicated. Assessment: 09:59 General: family at bedside states patient hit her head on a door frame while carrying ap3 large [place] boxes Wednesday12/08/24, and then fell Wednesday12/10/24.. 10:02 General: family presented an empty Diazepam 10mg bottle. patient states she took one ap3 last night and another the night before. patient states "i have it for a procedure a while back". Vital Signs: 09:47 BP 151 / 87; Pulse 104; Resp 18; Temp 98.8(O); Pulse Ox 100% on R/A; ap3 13:06 BP 151 / 72; Pulse 102; Resp 17; Pulse Ox 96% on R/A; ap3 13:40 BP 143 / 77; Pulse 104; Pulse Ox 99% on R/A; ap3 ED Course: 09:44 Patient arrived in ED. bd 09:45 Pelon Jacinto DO is Attending Physician. ms3 09:47 Alicja Sheriff, ONEYDA is Primary Nurse. ap3 09:49 Triage completed. ap3 09:51 Patient has correct armband on for positive identification. Bed in low position. Call ap3 light in reach. Side rails up X2. Adult w/ patient. Provided Education on: call light education. Client placed on continuous cardiac and pulse oximetry monitoring. NIBP monitoring applied. nuclear monitoring technician on. Pulse ox on. NIBP on. 09:51 Arm band placed on right wrist. ap3 09:59 Initial lab(s) drawn, by me, sent to lab. Maintain EMS IV. Dressing intact. Good blood ap3 return noted. Site clean \\T\\ dry. Gauge \\T\\ site: 20g right AC. Flushed with 10 mL NS. 09:59 CBC with Diff Sent. ap3 09:59 CMP Sent. ap3 10:35 CT Head C Spine In Process Unspecified. EDMS 10:35 CT Abd/Pelvis - Without Contrast In Process Unspecified. EDMS 10:46 XRAY Chest (1 view) In Process Unspecified. EDMS 10:59 Urine collected: straight cath specimen, clear, Amount Returned: 650mL. Straight cath kc6 inserted, using sterile technique, 14 Fr. Specimen obtained. Returned clear yellow urine. Patient tolerated well. 11:32 First set of blood cultures drawn by me. ap3 11:40 Second set of blood cultures drawn by me. ap3 11:53 Maite Reddy MD is Hospitalizing Provider. ms3 13:07 No provider procedures requiring assistance completed. Patient admitted, IV remains in ap3 place. Administered Medications: 12:48 Drug: Rocephin IV 1 grams IV at calculated rate once; Given slow IV push per pharmacy ap3 instructions Route: IV; Rate: calculated rate; Site: right antecubital; 13:06 Follow up: IV Status: Completed infusion ap3 Medication: 13:07 VIS not applicable for this client. ap3 Outcome: 11:53 Decision to Hospitalize by Provider. ms3 13:47 Admitted to Med/surg accompanied by tech, via stretcher, room 431, with chart, kc6 13:47 Condition: good 13:47 Instructed on the need for admit, 13:47 Patient left the ED. kc6 Signatures: Dispatcher [employer] EDMS Rsoi Dillon Amanda, RN RN ap3 Pelon Jacinto DO DO ms3 Pricilla Aguillon, RN RN kc6
[2024-12-11 12:30] LABS: PT Prothrombin Time 12.6 SECONDS (9.4-12.5); PTT, Activated Partial Thromb 28.2 SECONDS (24.3-36.9); Protime INR 1.2
[2024-12-11] MEDS ORDERED: CEFTRIAXONE 1000 MG/VIAL ONE (12:44)
[2024-12-11] MEDS ORDERED: NA CHLORIDE 0.9% 50 ML ONE (12:44)
--- NOTE | 2024-12-11 13:18 | P.HP ---
Certification for Inpatient Patient admitted to: Observation With expected LOS: <2 Midnights Patient will require the following post-hospital care: None Practitioner: I am a practitioner with admitting privileges, knowledge of patient current condition, hospital course, and medical plan of care. Services: Services provided to patient in accordance with Admission requirements found in Title 42 Section 412.3 of the Code of Federal Regulations <Bella Andrade - Last Filed: 12/11/24 13:25> Patient History Date of Service: 12/11/24 Primary Care Provider: Karyn Reason for admission: UTI, weakness/falls History of Present Illness: Ms. Diez is a 89-year-old female with a past medical history of hyperlipidemia with remote fractures and spondylosis of her lower T-spine and lumbar spine. She was carrying large empty boxes into her house on Wednesday (3 days ago) and lost her balance and struck her head against the outside wall. She had no loss of consciousness. Wednesday evening she fell and her son-in-law picked her up and put her into her bed and arranged furniture so she could hold on to get to the bathroom. She fell once Wednesday evening and again on Wednesday. Upon awakening today, she had significant pain overall and was unable to move her legs without pain. At bedside, there is no discomfort on palpation of any lower extremity joints or long bones. She was evaluated in the emergency department and found to have a urinary tract infection with positive urine nitrites, urine white blood cells, and greater than 50 urine bacteria, other significant labs include WBC of 16.7 with a mild left shift, negative lactate, a sodium of 129, chloride 96, and albumin of 2.9. Will admit her for IV antibiotics, evaluation by PT, with probable discharge tomorrow on oral antibiotics. - Past Medical/Surgical History Has patient received pneumonia vaccine in the past: Yes -: Hyperlipidemiahas atorvastatin but is not taking it -: Menopausehas estradiol cream but is not using it -: Lumbar spondylosis -: Cholecystectomy -: Hysterectomy -: Bladder sling Psychosocial/ Personal History: Uses a cane at times otherwise ambulatory - Social History Smoking Status: Former smoker (Quit 40 years ago) Alcohol use: No CD- Drugs: No Caffeine use: No Place of Residence: Home <Bella Andrade Pawel - Last Filed: 12/11/24 13:25> Date of Service: 12/11/24 <Maite Reddy - Last Filed: 12/12/24 02:15> Allergies No Known Drug Allergies Allergy (Verified 12/11/24 19:56) Unknown Home Medications: NK [No Home Meds] 12/11/24 Review of Systems 10-point ROS is otherwise unremarkable General: Weakness, Malaise Eyes: Unremarkable ENT: Unremarkable Respiratory: Unremarkable Cardiovascular: Unremarkable Gastrointestinal: Unremarkable Genitourinary: Unremarkable Musculoskeletal: As per HPI Integumentary: Unremarkable Neurological: Weakness <Bella Andrade Pawel - Last Filed: 12/11/24 13:25> Physical Examination - Physical Exam General: Alert, In no apparent distress, Oriented x3, Cooperative HEENT: Atraumatic, Normocephalic, PERRLA, Other (Hard of hearing) Neck: Supple, 2+ carotid pulse no bruit, JVD not distended Respiratory: Normal air movement Cardiovascular: Normal pulses, Regular rate/rhythm, Normal S1 S2, Systolic murmur Capillary refill: <2 Seconds Gastrointestinal: Normal bowel sounds Musculoskeletal: No clubbing, No swelling, No contractures Integumentary: No rashes Neurological: Normal speech, Normal tone, Normal affect Lymphatics: No axilla or inguinal lymphadenopathy External genitalia: Deferred Rectal: Deferred - Studies Laboratory Data (last 24 hrs) 12/11/24 12/11/24 12/11/24 12:07 09:56 09:56 WBC 16.70 H Hgb 13.2 Hct 39.6 Plt Count 260 PT 12.6 H INR 1.20 APTT 28.2 Sodium 129 L Potassium 3.5 BUN 12 Creatinine 0.66 Glucose 120 H Total Bilirubin 1.5 H AST 30 ALT 22 Alkaline Phosphatase 85 <Bella Andrade Pawel - Last Filed: 12/11/24 13:25> - Studies Laboratory Data (last 24 hrs) 12/11/24 12/11/24 12/11/24 12:07 09:56 09:56 WBC 16.70 H Hgb 13.2 Hct 39.6 Plt Count 260 PT 12.6 H INR 1.20 APTT 28.2 Sodium 129 L Potassium 3.5 BUN 12 Creatinine 0.66 Glucose 120 H Total Bilirubin 1.5 H AST 30 ALT 22 Alkaline Phosphatase 85 <Maite Reddy - Last Filed: 12/12/24 02:15> Assessment and Plan - Plan Weakness/falls Possibly secondary to hyponatremia, gentle IVF Monitor and trend/replete electrolyte Admit for observation PT consult Pain control Spasm control If unable to ambulate will MRI L-spine Reevaluate electrolytes in a.m. UTI Possibly secondary to constipation versus not using estradiol cream Gentle IVF Blood and urine culture sent from ED Rocephin 1 g IV daily Constipation Possibly secondary to spondylosis and lower back versus volume depletion Lactulose 10 g p.o. twice daily x 4 doses VTE prophylaxis Lovenox Teds Discharge Plan: Home Plan to discharge in: 24 Hours - Advance Directives Does patient have a Living Will: No Does patient have a Durable POA for Healthcare: No - Code Status/Comfort Care Code Status Assessed: Yes Code Status: Full Code <Bella Andrade Pawel - Last Filed: 12/11/24 13:25> Date of Service: 12/11/24 Subjective Patient is an 89-year-old female who apparently has been getting weak for the last couple of days. She had fallen and hit her head on a brick wall on the outside of her house. Since that time she has been really weak in her lower extremities. Physical Examination - Vitals Reviewed - Physical Exam General: Alert, In no apparent distress, Oriented x3, Cooperative HEENT: Atraumatic, Normocephalic, PERRLA, Other (Hard of hearing) Respiratory: Normal air movement Cardiovascular: Normal pulses, Regular rate/rhythm, Normal S1 S2, Systolic murmur Gastrointestinal: Normal bowel sounds Musculoskeletal: No clubbing, No swelling, No contractures Integumentary: No rashes Neurological: Bilateral lower extremity weakness; pain on straight leg raise of the left leg Assessment and Plan - Assessment/Plan Chart has been reviewed. Events of the last 24 hours have been noted. Case discussed with ROBERTO. I performed a substantial part of the MDM during this patient's care today. I personally made or approved the documented management plan and acknowledge its risk of complications. I agree with the findings and documentation provided in the ROBERTO's notes. Patient with bilateral lower extremity weakness. Patient has had falls; continue with myopathy workup. Patient does have a UTI and will treat with antibiotics. Will get physical therapy consultation. Check thyroid studies and cortisol studies. Patient does have some compression fractures but there does not appear to be any cord compression. Will continue to monitor closely. Check inflammatory marker as well. Patient will be admitted to the hospital for observation. Will get physical therapy evaluation. If she is not improving then we will have to admit her for inpatient hospitalization and work on rehab placement. Further imaging studies may be needed depending on how patient progresses. Discharge Plan: Home Plan to discharge in: 24 Hours - Advance Directives Does patient have a Living Will: No Does patient have a Durable POA for Healthcare: No - Code Status/Comfort Care Code Status Assessed: Yes Code Status: Full Code <Maite Reddy - Last Filed: 12/12/24 02:15>
[2024-12-11] MEDS: NA CHLORIDE 0.9% 1,000 ML IV SCH (14:44)
[2024-12-11] MEDS ORDERED: FLU (Fluarix Triv) TS24-25(6MOS UP)/PF 45 MCG/0.5 ML Syringe IM ONE (15:00)
[2024-12-11 16:26] LABS: Absolute Lymphocytes (CBC) 1.1 K/uL (0.7-4.9); Absolute Monocytes 1.3 K/uL (0.1-1.3); Absolute Neutrophil 11.1 K/uL (1.8-8.0); Basophils % 0.2 % (0-1.3); Eosinophils % 0.1 % (0-4.4); Hematocrit 40.1 % (36.0-45.0); Hemoglobin 13.8 g/dL (12.0-15.0); Lymphocytes % 7.8 % (15.3-44.8); MCH 31.2 pg (27.0-35.0); MCHC 34.3 g/dL (32.0-36.0); MCV 90.8 fL (80-100); MPV 8.1 fL (7.6-11.3); Monocytes % 9.8 % (3.3-12.3); Neutrophils % 82.1 % (41.7-73.7); Platelets 235 thou/uL (152-406); RBC Red Blood Cell Count 4.41 M/uL (3.86-4.86); Red Cell Distribution Width 12.7 % (12.1-15.2)
[2024-12-11 16:44] LABS: Albumin 2.8 g/dL (3.4-5.0); Albumin/Globulin Ratio 0.7 (1.1-1.8); Anion Gap 11.2 mEq/L (5.0-15.0); Bilirubin Total 1.7 mg/dL (0.2-1.0); Globulin 3.9 g/dL (2.3-3.5); Potassium 3.2 mEq/L (3.5-5.1); Protein, Total 6.7 g/dL (6.4-8.2)
[2024-12-11] MEDS: ENOXAPARIN 40 MG/0.4 ML SQ SCH (16:45)
[2024-12-11] MEDS: FENTANYL CITR 100 MCG/2 ML IV ONE (17:23)
[2024-12-11] MEDS: HYDROCODONE/APAP 5/325 MG TAB PO PRN (19:50)
[2024-12-12] MEDS: dexAMETHasone 4 MG/ML VIAL IV SCH (06:13)
[2024-12-12] MEDS: CEFTRIAXONE 1,000 MG in NA CHLORIDE 0.9% 50 ML IVPB SCH (08:55)
[2024-12-12 09:44] LABS: Absolute Basophils 0.1 K/uL (0-0.5); Absolute Lymphocytes (CBC) 0.5 K/uL (0.7-4.9); Absolute Monocytes 0.5 K/uL (0.1-1.3); Absolute Neutrophil 9.4 K/uL (1.8-8.0); Basophils % 0.5 % (0-1.3); Eosinophils % 0.1 % (0-4.4); Hematocrit 38.3 % (36.0-45.0); Lymphocytes % 4.8 % (15.3-44.8); MCH 31.3 pg (27.0-35.0); MCHC 33.9 g/dL (32.0-36.0); MCV 92.2 fL (80-100); Monocytes % 4.3 % (3.3-12.3); Neutrophils % 90.3 % (41.7-73.7); Platelets 259 thou/uL (152-406); RBC Red Blood Cell Count 4.15 M/uL (3.86-4.86)
[2024-12-12 10:20] LABS: Albumin 2.7 g/dL (3.4-5.0); Albumin/Globulin Ratio 0.7 (1.1-1.8); Anion Gap 9.2 mEq/L (5.0-15.0); Bilirubin Total 1.7 mg/dL (0.2-1.0); C-Reactive Protein 89.5 mg/L (<3.00); Globulin 3.8 g/dL (2.3-3.5); Magnesium 1.9 mg/dL (1.6-2.4); Potassium 3.2 mEq/L (3.5-5.1); Protein, Total 6.5 g/dL (6.4-8.2); Thyroid Stimulating Hormone 0.315 uIU/mL (0.358-3.740)
[2024-12-12] MEDS: POTASSIUM CL SA 10 MEQ TAB PO ONE ×2 (11:00→11:52)
[2024-12-12 11:37] LABS: Hepatitis B Core IgM Nonreactive (Nonreactive); Hepatitis B surface AG Interp. Nonreactive (Nonreactive); Hepatitis C Virus Ab Nonreactive (Nonreactive)
[2024-12-12 11:38] LABS: HBsAG Nonreactive Report Report
[2024-12-12] MEDS: MORPHINE 2 MG/ML SYR IV ONE (12:37)
[2024-12-12] MEDS: MORPHINE 2 MG/ML SYR ONE (13:16)
--- NOTE | 2024-12-12 15:00 | RAD REPORT ---
EXAMINATION: MRI BRAIN WITHOUT CONTRAST CLINICAL INDICATION: Confusion/alteration of consciousness TECHNIQUE: Multiplanar multisequence MR images of the brain were obtained without intravenous contras t. Unless otherwise specified, incidental findings do not require dedicated imaging follow-up. COMPARISON: December 11, [address] FINDINGS: Mild to moderate abnormal signal within periventricular, deep and subcortical white matter probably i schemic changes secondary to small vessel disease. Diffusion weighted/ADC mapping does not demonstrate evidence of an acute infarction. Gradient sequence demonstrates low signal along the right cerebral convexity presumably hemosiderin Ventricles are normal caliber. No fluid within the sinuses/mastoid seen IMPRESSION: Small amount of hemosiderin is suspected along the right cerebral convexity. The age is indeterminate . This could be subacute or chronic. An unenhanced CT scan of the brain is recommended for further evaluation.
--- NOTE | 2024-12-12 16:17 | P.PN ---
Subjective Date of Service: 12/12/24 Primary Care Provider: Karyn Chief Complaint: UTI, weakness/falls Patient was found sleeping during my visit. He is easily arousable. No issues overnight, no reported agitation. Physical Examination - Vital Signs Temperature: 98.1 F Blood Pressure: 124/69 Pulse: 86 Respirations: 16 Pulse Ox (%): 97 Assessment And Plan - Plan Physical examination General: Alert and oriented x 2, NAD, HEENT: Conjunctiva not pale, anicteric sclera Neck: Supple, no elevated JVD Heart: Heart sounds 1 and 2 normal, regular rhythm, normal rate, no pedal edema Lungs: Clear to auscultation bilaterally, adequate breath sounds bilaterally, no rhonchi or crackles. Abdomen: Soft, nondistended, nontender, normal bowel sounds. Extremities: No tenderness, no deformity Skin: Normal skin turgor, no rash, no nodules or ulcers. Neuro: No focal motor deficit. Normal speech. Psychiatry: Normal mood, no agitation. Assessment and plan Generalized weakness Multiple falls Intracranial Bleed Possibly secondary to hyponatremia and a UTI. MRI of the brain shows small amount of hemosiderin is suspected along the right cerebral convexity. Obtain CT head without contrast to further evaluate. Neurochecks. Fall precaution Pain control Hyponatremia Serum osmolality indicating dehydration Continue IV NS. Monitor BMP. UTI Urine cultures growing gram-negative rods Continue IV Rocephin Follow urine culture and blood cultures Constipation Continue lactulose. VTE prophylaxis: SCD Advanced directive: Full code
[2024-12-12] MEDS: PANTOPRAZOLE 40MG TABLET PO SCH (20:14)
[2024-12-12] MEDS: QUETIAPINE 25 MG TAB PO SCH (21:00)
--- NOTE | 2024-12-12 21:12 | RAD REPORT ---
EXAM: CT brain without contrast HISTORY: Intracranial bleed COMPARISON: MRI December 12, 2024 TECHNIQUE: Multiple contiguous axial images were obtained and a CT of the brain without contrast.. Sagittal and coronal reconstruction performed. Automated exposure control, adjustment of the mA and/or kV according to patient size, and/or iterative reconstruction. Unless otherwise specified, incidental f indings do not require dedicated imaging follow-up FINDINGS: Very small amount of blood is present along predominantly right frontal convexity in the subdural spa ce . There is also small amount of subdural blood along the left frontal convexity as well. Ventricles are normal caliber Moderate low-density within periventricular, deep and subcortical white matter may represent ischemic changes secondary to small vessel disease. No fluid within the visualized sinuses or mastoids noted. IMPRESSION: Very small subdural bleeds along the frontal convexities bilaterally. No mass effect noted. Dr. Sapp was notified
--- NOTE | 2024-12-12 22:37 | P.PN ---
Date of Service: 12/12/24 Patient was seen and examined No headache Denies any chest pain or shortness of breath Denies any weakness No nausea vomiting or diarrhea No focal motor/sensory impairment We will get a Serial NIH scales Transfer initiated to ICU for closer monitoring Will get a CT head without contrast in a.m. Will transfer to higher level of care if worsening of hemorrhage in CT
[2024-12-13 05:37] LABS: Absolute Monocytes 0.9 K/uL (0.1-1.3); Basophils % 0.4 % (0-1.3); Eosinophils % 0.1 % (0-4.4); Hematocrit 38.2 % (36.0-45.0); Hemoglobin 13.1 g/dL (12.0-15.0); Lymphocytes % 7.5 % (15.3-44.8); MCHC 34.3 g/dL (32.0-36.0); MCV 90.5 fL (80-100); MPV 8.2 fL (7.6-11.3); Monocytes % 6.8 % (3.3-12.3); Neutrophils % 85.2 % (41.7-73.7); Nucleated Red Blood Cells % 0.1 % (0-0); Platelets 243 thou/uL (152-406); RBC Red Blood Cell Count 4.22 M/uL (3.86-4.86); Red Cell Distribution Width 12.5 % (12.1-15.2)
[2024-12-13 05:58] LABS: Ferritin 312.5 ng/mL (8-252)
[2024-12-13 10:15] LABS: Blood Morphology Comment NOT SEEN (NOT SEEN); Platelet Estimate ADEQ; White Blood Cell Scan OK (OK)
[2024-12-13] MEDS: LORazepam 2 MG/ML VIAL IV ONE (11:19)
--- NOTE | 2024-12-13 12:53 | CON ---
Date of Consultation: 12/13/2024 Reason For Consultation: Hyponatremia. History Of Present Illness: This is an 89-year-old female without any significant past medical histo ry except hyperlipidemia, spinal stenosis. The patient came to the hospital after a fall and fractur e. The patient found to have hyponatremia. For that reason, we have been consulted. The patient de nied taking any nonsteroidal. No diuresis. Not on any blood pressure medication. The patient admit s that she is polydipsic, but that is intentionally because she has a dry mouth all the time. Upon a rrival to the hospital, patient's sodium was down to 129, currently down to 124. For that reason, we have been consulted. Past Medical History: Include: 1.Hyperlipidemia. 2.Menopause. 3.Lumbar stenosis. Past Surgical History: Include cholecystectomy, hysterectomy, bladder sling. Social History: Ex-smoker. Denied alcohol. Denied drugs abuse. Family History: Positive for hypertension. Allergies: NO KNOWN DRUGS ALLERGY. Home Medication: Prevacid. Review of Systems: Head and Neck: No red eye. No ear pain. GI: No nausea. No vomiting. : No polyuria. No dysuria. No hematuria. [employer]: No vaginal discharge. Respiratory: No shortness of breath. Cardiovascular: No orthopnea. No leg swelling. Endocrine: No polydipsia. Skin: No rash. Neuro: Has fall. Musculoskeletal: Generalized fatigue. Physical Examination: General: When I saw the patient, patient lying in bed, comfortable, not in any distress. Vital Signs: Blood pressure 113/78, pulse of 84, afebrile. Chest: Clear to auscultation. Heart: S1, S2. Regular. Abdomen: Soft, nontender. Extremities: No edema. Neurologic: Alert. No focality. No tremor. Laboratory Data: WBC 12.9, hemoglobin 13.1. Upon admission; sodium 129, potassium 3.5, bicarb 29, B UN 12, creatinine 0.6, calcium 8.3. Today's lab data; sodium 124, potassium 4, bicarb 25, BUN 14, cr eatinine 0.4. Serum osmolality 644, calcium 8.6, magnesium of 2. Cortisol 18.6. Urinalysis: Speci fic gravity 1.010. Current Medications: The patient on, includes ceftriaxone, lorazepam, lactulose, dexamethasone, pant oprazole, IV fluid at 70 per hour. Assessment And Plan: 1.Hyponatremia, possible secondary to inappropriate ADH secondary to pain. We will start the patien t on fluid restriction. We will send further workup and we will follow up the patient. We will foll ow up with the lab regarding the serum osmolality because it looks robert high, and we will monitor. 2.Fracture, as by Primary. 3.Hypomagnesemia, resolved. YAIR/MODL Voice ID: [id number] Report ID: [id number]
--- NOTE | 2024-12-13 14:09 | P.PN ---
Subjective Date of Service: 12/13/24 Primary Care Provider: Karyn Chief Complaint: UTI, weakness/falls Patient is awake and alert. She denies any headache. Patient slightly confused, she is pleasant. No reported agitation. Physical Examination - Vital Signs Temperature: 98.1 F Blood Pressure: 114/72 Pulse: 84 Respirations: 16 Pulse Ox (%): 99 - Studies Microbiology Data (last 24 hrs): 12/11/24 10:57 Catheterized Urine Calvin Count - Final >100,000 CFU/ML. 12/11/24 10:57 Catheterized Urine - Final Citrobacter Koseri Assessment And Plan - Plan Physical examination General: Alert and oriented x 2, NAD, HEENT: Conjunctiva not pale, anicteric sclera Neck: Supple, no elevated JVD Heart: Heart sounds 1 and 2 normal, regular rhythm, normal rate, no pedal edema Lungs: Clear to auscultation bilaterally, adequate breath sounds bilaterally, no rhonchi or crackles. Abdomen: Soft, nondistended, nontender, normal bowel sounds. Extremities: No tenderness, no deformity Skin: Normal skin turgor, no rash, no nodules or ulcers. Neuro: No focal motor deficit. Normal speech. Psychiatry: Normal mood, no agitation. Assessment and plan Generalized weakness Generalized weakness possibly secondary to hyponatremia and a UTI. Patient is on antibiotics. Hyponatremia worse compared to yesterday. Patient is on IV NS. PT is on hold due to intracranial bleed. Intracranial bleed/subdural hematoma Multiple falls MRI of the brain shows small amount of hemosiderin is suspected along the right cerebral convexity. CT head showed very small subdural bleeds along the frontal convexities bilaterally. Case discussed with neurology Dr. Dwyer. Repeat CT head today. Will initiate transfer if CT head reports worsening subdural hematoma. Neurochecks. Fall precaution Pain control Hyponatremia Serum osmolality is high indicating dehydration No significant response to IV NS. Nephrology consult. Monitor BMP. UTI Urine cultures growing pansensitive Citrobacter Blood cultures shows no growth. Continue IV Rocephin Patient to complete 5 days of antibiotic therapy Constipation Continue lactulose. VTE prophylaxis: SCD Advanced directive: Full code
[2024-12-13] MEDS: Mupirocin NASAL 2 APPL/1 GM TUBE NAS SCH (15:09)
--- NOTE | 2024-12-13 17:06 | RAD REPORT ---
EXAMINATION: MRI LUMBAR SPINE WITHOUT CONTRAST CLINICAL INDICATION: Female, 89 years old. [facility] fall TECHNIQUE: Multiplanar multisequence MR images were obtained of the lumbar spine without IV gadoliniu m contrast. Unless otherwise specified, incidental findings do not require dedicated imaging follow-up. COMPARISON: 12/11/2024 and 04/16/2022 CT abdomen and pelvis FINDINGS: Marked motion artifact limits evaluation especially on the axial images, despite attempts at repeat i maging. For purposes of this dictation, it is assumed that there are 5 non rib-bearing lumbar type vertebrae, and the most caudal fully segmented lumbar vertebra is labeled L5. ALIGNMENT: The lumbar spine has normal alignment. BONE: Anterior wedge compression deformities involving L4, T12, and T11 (which is partially visualize d), with stable degrees of vertebral body height loss dating back to 2021. No associated marrow signal abnormality. Heterogeneous hyperintense T2 signal involving S3 vertebral body, extending into the sacral ala more so on the left. CORD: No abnormal signal in the cord. The conus medullaris terminates at a normal level. The nerve ro ots of the cauda equina are not well evaluated given the extent of motion artifact. SOFT TISSUE: The included paraspinal soft tissues and retroperitoneal structures are grossly normal. No abnormal masses or enhancement. EVALUATION OF THE INDIVIDUAL LEVELS: L1-2: Unremarkable. L2-3: Unremarkable. L3-4: Posterior L4 cortical buckling diffuse disc bulge, contributes to at least moderate central can al stenosis. Some ligamentum flavum buckling also contributes to the finding. Bilateral moderate neural foraminal narrowing worse on the right. L4-5: Broad-based posterior disc bulge and pronounced ligamentum flavum buckling contribute to mild c entral canal stenosis with additional left more than right lateral recess narrowing. Bilateral [id number] neural foraminal narrowing worse on the right. L5-S1: Diminutive disc space. Endplate spurring/remodeling. Tapering of the thecal sac which is effac ed by the endplate osteophytes especially on the right. Mild bilateral neural foraminal narrowing. IMPRESSION: Marrow signal abnormalities involving S3, extending into the sacral ala, suggesting acute to subacute fractures. Insufficiency fractures are a possible etiology. Stable anterior wedge compression deformities involving T12 and L4. Similar changes at T11, partially visualized. Moderate to advanced spondylotic lower lumbar spine changes, worsened by posterior L4 vertebral body cortical buckling, contributing to at least moderate central canal stenosis at L3-4, mild central canal stenosis at L4-5, and effacement of the thecal sac at L5-S1. Variable degrees of neural foramin al narrowing, up to moderate bilaterally at L3-4.
--- NOTE | 2024-12-13 17:06 | RAD REPORT ---
EXAM: CT brain without contrast HISTORY: Subdural hemorrhage COMPARISON: December 12, 2024 TECHNIQUE: Multiple contiguous axial images were obtained and a CT of the brain without contrast.. Sagittal and coronal reconstruction performed. Automated exposure control, adjustment of the mA and/or kV according to patient size, and/or iterative reconstruction. Unless otherwise specified, incidental f indings do not require dedicated imaging follow-up FINDINGS: Very small bilateral subdural bleeds have diminished in size. Ventricles are normal caliber No mass effect. No additional significant abnormality. IMPRESSION: Very small bilateral subdural bleeds have diminished in size prior exam. No mass effect
[2024-12-14 05:36] LABS: Absolute Basophils 0.1 K/uL (0-0.5); Absolute Lymphocytes (CBC) 0.9 K/uL (0.7-4.9); Absolute Monocytes 1.2 K/uL (0.1-1.3); Absolute Neutrophil 12.7 K/uL (1.8-8.0); Basophils % 0.5 % (0-1.3); Hematocrit 37.6 % (36.0-45.0); Hemoglobin 12.9 g/dL (12.0-15.0); Lymphocytes % 6.3 % (15.3-44.8); MCH 30.9 pg (27.0-35.0); MCHC 34.3 g/dL (32.0-36.0); MCV 89.9 fL (80-100); MPV 8.5 fL (7.6-11.3); Monocytes % 8.1 % (3.3-12.3); Neutrophils % 85.1 % (41.7-73.7); Platelets 308 thou/uL (152-406); RBC Red Blood Cell Count 4.19 M/uL (3.86-4.86); Red Cell Distribution Width 12.5 % (12.1-15.2)
[2024-12-14 05:59] LABS: Albumin 2.5 g/dL (3.4-5.0); Anion Gap 7.8 mEq/L (5.0-15.0); Magnesium 2.1 mg/dL (1.6-2.4); Phosphorus 2.9 mg/dL (2.5-4.9); Potassium 3.8 mEq/L (3.5-5.1); Thyroid Stimulating Hormone 0.177 uIU/mL (0.358-3.740); Uric Acid 1.4 mg/dL (2.6-6.0)
[2024-12-14] MEDS: KCL 20 MEQ/100 mL IVPB 20 MEQ/100 ML BAG IV SCH (07:25)
[2024-12-14 08:37] LABS: Blood Morphology Comment NOT SEEN (NOT SEEN); Platelet Estimate ADEQ; Platelets Clumped FEW; White Blood Cell Scan OK (OK)
--- NOTE | 2024-12-14 12:04 | EKG ---
Test Date: 2024-12-11 Test Time: 12:00:52 Nc Manager: JADE MEASUREMENT RESULTS: Intervals: Rate: 103 ND: 200 QRSD: 134 QT: 370 QTc: 484 [place]: P: 84 ND: 200 QRS: 61 T: 71 INTERPRETIVE STATEMENTS: Sinus tachycardia Left bundle branch block Abnormal ECG Compared to ECG 10/01/2022 10:37:32 Sinus rhythm no longer present Electronically Signed On 12-14-24 12:01:10 DRILL SETUP OPERATOR by Reinaldo Mcdaniels
[2024-12-14] MEDS: POTASSIUM CL SA 10 MEQ TAB PO ONE (12:44)
[2024-12-14] MEDS ORDERED: FUROSEMIDE 20 MG/ 2ML VIAL IV ONE (13:00)
--- NOTE | 2024-12-14 16:36 | P.PN ---
Subjective Date of Service: 12/14/24 Primary Care Provider: Karyn Chief Complaint: UTI, weakness/falls Patient is awake and alert. She denies any headache. She denies any other complaint No reported agitation. Physical Examination - Vital Signs Temperature: 97.3 F Blood Pressure: 123/61 Pulse: 87 Respirations: 16 Pulse Ox (%): 98 Assessment And Plan - Plan Physical examination General: Alert and oriented x 2, NAD, HEENT: Conjunctiva not pale, VINICIUS Neck: Supple, no elevated JVD Heart: Heart sounds 1 and 2 normal, regular rhythm, normal rate, no pedal edema Lungs: Clear to auscultation bilaterally, adequate breath sounds bilaterally, no rhonchi or crackles. Abdomen: Soft, nondistended, nontender, normal bowel sounds. Extremities: No tenderness, no deformity Skin: Normal skin turgor, no rash, no nodules or ulcers. Neuro: No focal motor deficit. Normal speech. Psychiatry: Normal mood, no agitation. Assessment and plan Generalized weakness Generalized weakness possibly secondary to hyponatremia and a UTI. Patient is on antibiotics. Hyponatremia worse compared to yesterday. Patient is on IV NS. Stable subdural hematoma. Resume PT. Anticipating inpatient rehab versus skilled rehab. Intracranial bleed/subdural hematoma Multiple falls MRI of the brain shows small amount of hemosiderin is suspected along the right cerebral convexity. CT head showed very small subdural bleeds along the frontal convexities bilaterally. Case discussed with neurology Dr. Dwyer. Repeat CT head shows stable subdural hematoma. Neurochecks. Fall precaution Pain control Transferred to the medical floor. 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 No significant response to IV NS. Nephrology Dr. Carlos input appreciated. Fluid restriction Monitor BMP. UTI Urine cultures growing pansensitive Citrobacter Blood cultures shows no growth. Continue IV Rocephin Patient to complete 5 days of antibiotic therapy Constipation Continue lactulose. VTE prophylaxis: SCD Advanced directive: Full code
--- NOTE | 2024-12-14 17:47 | PN ---
Date of Progress Note: 12/14/2024 Subjective: The patient was admitted to the hospital with severe hyponatremia. The patient was shahab avelina with IV hydration. The patient's sodium started trending up. Physical Examination: Vital Signs: When I saw the patient, blood pressure of 128/68, pulse of 86, afebrile. The patient h ad good urine output of 2200. Chest: Clear to auscultation. Heart: S1, S2. Regular. Systolic murmur. Abdomen: Soft, nontender. Extremities: No edema. Neurologic: Alert. No focality. No tremor. Laboratory Data: WBC 15, hemoglobin 12.9. Sodium 128, potassium 3.8, bicarb 27, BUN 13, creatinine 0.4, calcium is 8.3, uric acid 1.4, phosphorus 2.9, magnesium 2.1, albumin 2.5, corrected calcium 9.5 . Serum osmolality 272, urine osmolality 546, urine sodium 87, urine potassium 37. Current Medications: The patient on include: 1.IV fluid. 2.Ceftriaxone. 3.Lactulose. 4.Quetiapine. 5.Dexamethasone. 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 Sodium continued to trend up nicely. I am going to discontinue IV fluid. We will give the patient single dose of Lasix today. We will monitor the patient. Contin ue fluid restriction. Patient educated about fluid restriction and high salt diet. The patient verb alized understanding. 2.Hypokalemia. We will supplement. 3.Hypertension, controlled optimal. Continue current treatment. 4.Urinary tract infection. Continue current antibiotic. YAIR/CARLOS Voice ID: [id number] Report ID: [id number]
[2024-12-15 07:22] LABS: Albumin 2.4 g/dL (3.4-5.0); Anion Gap 9.1 mEq/L (5.0-15.0); Phosphorus 2.8 mg/dL (2.5-4.9); Potassium 4.1 mEq/L (3.5-5.1)
--- NOTE | 2024-12-15 11:55 | P.PN ---
Date of Service: 12/15/24 Subjective Date of Service: 12/15/24 Primary Care Provider: Karyn Chief Complaint: UTI, weakness/falls No issues overnight, no reported agitation took 38 steps yesterday Physical Examination - Vital Signs reviewed Assessment And Plan - Plan Physical examination General: Alert and oriented x 2, NAD, HEENT: Conjunctiva not pale, anicteric sclera Neck: Supple, no elevated JVD Heart: Heart sounds 1 and 2 normal, regular rhythm, normal rate, no pedal edema Lungs: Clear to auscultation bilaterally, adequate breath sounds bilaterally, no rhonchi or crackles. Abdomen: Soft, nondistended, nontender, normal bowel sounds. Extremities: No tenderness, no deformity Skin: Normal skin turgor, no rash, no nodules or ulcers. Neuro: No focal motor deficit. Normal speech. Psychiatry: Normal mood, no agitation. Assessment and plan Generalized weakness Multiple falls Intracranial Bleed Possibly secondary to hyponatremia and a UTI. MRI of the brain shows small amount of hemosiderin is suspected along the right cerebral convexity. Obtain CT head without contrast to further evaluate. stable bilateral subdurals Neurochecks.s Fall precaution Pain control Lower extremity weakness MRI Lspine - sacral insufficiency fracture continue PT/OT SS for IPR placement Hyponatremia Serum osmolality indicating dehydration Continue IV NS. Monitor BMP. UTI Urine cultures growing gram-negative rods Continue IV Rocephin Follow urine culture and blood cultures Constipation Continue lactulose. VTE prophylaxis: SCD Advanced directive: Full code renew Rocephin for urine - citrobacter Koceri
[2024-12-15 18:29] LABS: Anti-Nuclear Antibody Screen Negative (Negative)
[2024-12-15] MEDS: dexAMETHasone 4 MG/ML VIAL IV SCH (20:26)
[2024-12-16 06:20] LABS: Albumin 2.3 g/dL (3.4-5.0); Anion Gap 12.1 mEq/L (5.0-15.0); Potassium 4.1 mEq/L (3.5-5.1)
[2024-12-16] MEDS: LACTULOSE 20 GM/30 ML UCUP PO PRN (13:01)
--- NOTE | 2024-12-16 22:07 | CON ---
Reason For Consultation: Consultation was called because of subdural hematoma after falling. History Of Present Illness: Ms. Diez is an 89-year-old patient with dyslipidemia, history of remote falls and more recent falls resulting in lower thoracic and lumbar spine compression fractures for w hich she said she never had surgery and she actually lives alone, but has many children, about 8, who can help her. She was carrying large into her house about a week ago when she lost her b alance, fell, and struck her head against an outside wall. She denied loss of consciousness. On Wed evening, her son-in-law picked her up and put her back to bed and they arranged furniture so sh e could hold onto furniture and ambulate by furniture walking to the bathroom. She apparently fell o nce again on Wednesday evening and then on Wednesday. She says she woke up on the in the morning, h ad significant pain throughout the body, had difficulty moving her legs due to pain. She had no issu es in terms of specific joints or bones, but just diffuse pain. She was brought to [facility] al found to be positive for urinary tract infection with elevated white blood cell count, nitrites, a nd greater than 50 bacteria. White blood cell count elevated to 16.7. She did have negative lactate and low sodium and chloride. She was admitted for further evaluation, receiving IV antibiotics, and to be seen by therapy service for a plan to eventually switch to oral antibiotics after IV and then discharge. The patient throughout her hospitalization, which is now 4 days, has had a fluctuating co urse, although not more confused, but more clear minded. A brain MRI done the day following her admi ssion identified mild to moderate amount of signal within the periventricular deep white matter, prob ably secondary to chronic small vessel ischemic disease. There was no acute ischemic hemorrhagic ana luisa nge identified. However, gradient sequences demonstrated low signal in the right cerebral convexity, presumably hemosiderin that was then followed up by a CT scan of the head done on the after the MRI and the study showed very small subdural bleed along the frontal convexities bilaterally. There was no mass effect. A repeat CT scan done the following day identified again very small bilateral s ubdural bleeds, which diminished in size compared to the study done the prior day. MRI of the lumbar spine done on the showed marrow signal abnormalities involving as 3 extending to the sacral ala suggestive of acute to subacute fractures. There was a stable anterior wedge compression deformity of T12 and L4 similarly T11. She had moderate to advanced spondylitic lower spine changes worsened b y a posterior L4 vertebral cortical buckling. This was contributing to at least moderate central can al stenosis at L3-4, mild central canal stenosis of L4-5, and effacement of the thecal sac at L5-S1. There were variable degrees of neural foraminal narrowing up to moderate bilaterally at L3, L4. She did report significant pain as the big issue in the back and of course to multiple falls where she h as impacted head and likely has the etiology of her subdural hematoma. She did begin physical therap y and walked about 20-25 steps requiring moderate assistance and therefore was determined to be a goo d candidate for a safe environment to do very aggressive physical therapy to help her return towards her level of functioning, where she may be able to be home and continue therapy with the help of her large family. Past Medical History: Dyslipidemia, lumbar spondylosis with multiple fractures. Past Surgical History: Cholecystectomy, hysterectomy, bladder sling surgery. Social History: The patient lives alone, but has a large family, says about 8 daughters. She has a son as well, who is involved in her care. He lives in [place]. She did smoke, but quit 40 years ago . No current alcohol, no IV drugs. Family History: Noncontributory. Allergies: NO KNOWN DRUG ALLERGIES. Medications: She is on Rocephin 1 g daily for urinary tract infection. She has dexamethasone 2 mg e very 12 hours, lactulose 10 g twice daily for constipation, Bactroban nasally twice daily, Protonix 4 0 mg daily, Seroquel 25 mg at bedtime, and [place] 5/325 for moderate pain. Laboratory Studies: White blood cell count is up to 15 and 85.1 neutrophils, hemoglobin 12.9, platel ets 308. INR 1.2. Her serum osmolality is low at 270. Sodium is low at 129, with chloride low at 9 5, potassium 4.1, carbon dioxide 26, BUN 17. Albumin 2.3. TSH very low at 0.177. The free T4 is no rmal at 1.33. Ammonia level less than 15. Total bilirubin elevated 1.7, AST 22, ALT 21. Magnesium 2.0 and urinalysis noted when she was admitted, extreme turbidity, 2+ nitrite, 75 esterase, 20-50 whi te blood cells, greater than 50 bacteria. CASEY screen was negative. Hepatitis screen is nonreactive. Physical Examination: Vital Signs: Blood pressure 111/77, pulse 80, respiratory rate 18, temperature 97.7, oxygen saturati on 98% on room air. Weight 136 pounds, height 5 feet 1 inch, BMI 25. General: Ms. Diez is lying in bed. Son is at bedside. HEENT: She despite head, appears normocephalic, atraumatic. Sclerae anicteric. Orophary nx pink and moist. Neck: Supple. Chest: Clear. Heart: Regular. Extremities: No significant edema, cyanosis, or clubbing noted. Neuro: She has good expression, comprehension. No evidence of cognitive dysfunction and no focal cr anial nerve deficits. No focal motor or coordination or sensation deficits. She will be ambulated a gain with therapist. Assessment And Plan: Ms. Diez is an 89-year-old patient who has had multiple falls, multiple fractu res of the lumbar vertebral region in addition to thoracic and sacral area. She has bilateral subdur als likely from head from falls, but the scans have shown interval improvement. 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 Her urine osmolality is normal. She is on a fluid restriction for that. She has cortisol added as well and sodium is being replaced. She has in addition multiple comorbidities including dyslipidemia and very low TSH with normal T4. She has an unsteady gait with poor balance. Plan: Continue with current course of management. 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 She requires significant pain management given the multiple fractures and neuromodulator, gabapentin 100 mg twice daily. May be with addition to current regimen . DVT prophylaxis to be considered as not apparently on DVT prophylaxis, but Eliquis 2.5 mg twice da kush may be helpful. Agree with continuing current antibiotics for the elevated white count, likely f rom urinary tract infection and the cultures did grow Citrobacter koseri from the . Multiple blo od cultures have been negative over 5 days and her bacteria is near pansensitive. Next, she again wi ll benefit from inpatient rehabilitation, which request has been submitted to insurance and approval is pending. ASIM Voice ID: [id number] Report ID: [id number]
[2024-12-17 06:59] LABS: Albumin 2.3 g/dL (3.4-5.0); Anion Gap 9.1 mEq/L (5.0-15.0); Phosphorus 3.6 mg/dL (2.5-4.9); Potassium 4.1 mEq/L (3.5-5.1)
[2024-12-17] MEDS: dexAMETHasone 4 MG/ML VIAL IV SCH (09:20)
--- NOTE | 2024-12-17 12:41 | P.PN ---
Date of Service: 12/17/24 Subjective Date of Service: 12/16/24 Primary Care Provider: Karyn Chief Complaint: UTI, weakness/falls No issues overnight, no reported agitation awaiting inpatient rehab bed Physical Examination - Vital Signs reviewed Assessment And Plan - Plan Physical examination General: Alert and oriented x 2, NAD, HEENT: Conjunctiva not pale, anicteric sclera Neck: Supple, no elevated JVD Heart: Heart sounds 1 and 2 normal, regular rhythm, normal rate, no pedal edema Lungs: Clear to auscultation bilaterally, adequate breath sounds bilaterally, no rhonchi or crackles. Abdomen: Soft, nondistended, nontender, normal bowel sounds. Extremities: No tenderness, no deformity Skin: Normal skin turgor, no rash, no nodules or ulcers. Neuro: No focal motor deficit. Normal speech. Psychiatry: Normal mood, no agitation. Assessment and plan Generalized weakness Multiple falls Intracranial Bleed Possibly secondary to hyponatremia and a UTI. MRI of the brain shows small amount of hemosiderin is suspected along the right cerebral convexity. Obtain CT head without contrast to further evaluate. stable bilateral subdurals Neurochecks.s Fall precaution Pain control needing pain meds to sleep, have been holding some second to hypotension, encouraged TEDs to remain for both DVT prophylaxis and Help with orthostasis. Will CT head prior to moving to inpatient rehab and starting anticoagulation Lower extremity weakness MRI Lspine - sacral insufficiency fracture continue PT/OT SS for IPR placement + ROM with lower extremities Hyponatremia Na 128 Serum osmolality stable (271) Continue IV NS. Monitor BMP. added salt in diet, mild fluid restriction UTI Urine cultures growing gram-negative rods Continue IV Rocephin - citrobacter Koceri Constipation Continue lactulose. Awaiting IPR bed VTE prophylaxis: SCD/TEDS Advanced directive: Full code
[2024-12-18 01:09] VITALS: O2SAT 98
[2024-12-18 07:04] LABS: Albumin 2.4 g/dL (3.4-5.0); Anion Gap 9.3 mEq/L (5.0-15.0); Phosphorus 3.9 mg/dL (2.5-4.9); Potassium 4.3 mEq/L (3.5-5.1)
[2024-12-18 07:09] VITALS: BMI 27.6
[2024-12-19 07:46] LABS: Anion Gap 10.2 mEq/L (5.0-15.0); Magnesium 2.2 mg/dL (1.6-2.4); Phosphorus 4.2 mg/dL (2.5-4.9); Potassium 4.2 mEq/L (3.5-5.1)
[2024-12-20 06:58] LABS: Anion Gap 10.5 mEq/L (5.0-15.0); Magnesium 1.9 mg/dL (1.6-2.4); Phosphorus 4.1 mg/dL (2.5-4.9); Potassium 4.5 mEq/L (3.5-5.1)
[2024-12-20 12:50] LABS: Absolute Eosinophils 0.2 K/uL (0-0.5); Absolute Lymphocytes (CBC) 2.1 K/uL (0.7-4.9); Absolute Monocytes 2.4 K/uL (0.1-1.3); Absolute Neutrophil 13.4 K/uL (1.8-8.0); Basophils % 0.2 % (0-1.3); Hematocrit 39.8 % (36.0-45.0); Hemoglobin 13.5 g/dL (12.0-15.0); Lymphocytes % 11.5 % (15.3-44.8); MCH 31.1 pg (27.0-35.0); MCHC 33.8 g/dL (32.0-36.0); MPV 7.2 fL (7.6-11.3); Monocytes % 13.1 % (3.3-12.3); Neutrophils % 74.2 % (41.7-73.7); Nucleated Red Blood Cells % 0.1 % (0-0); Platelets 293 thou/uL (152-406); RBC Red Blood Cell Count 4.33 M/uL (3.86-4.86); Red Cell Distribution Width 13.1 % (12.1-15.2)
[2024-12-20 13:05] LABS: Albumin 2.3 g/dL (3.4-5.0); Albumin/Globulin Ratio 0.6 (1.1-1.8); Anion Gap 11.1 mEq/L (5.0-15.0); Bilirubin Total 0.7 mg/dL (0.2-1.0); Globulin 3.7 g/dL (2.3-3.5); Potassium 4.1 mEq/L (3.5-5.1)
--- NOTE | 2024-12-20 18:22 | RAD REPORT ---
EXAM: CT brain without contrast HISTORY: Weakness COMPARISON: 12/13/2024 TECHNIQUE: Multiple contiguous axial images were obtained and a CT of the brain without contrast. Sag ittal and coronal reformats were performed. One or more of the following dose reduction techniques were used: Automated exposure control, adjust ment of the mA and/or kV according to patient size, and/or iterative reconstruction. FINDINGS: No evidence of hydrocephalus, intracranial hemorrhage, or extra-axial fluid collection. Moderate brain atrophy with moderate periventricular and deep white matter chronic microvascular isc hemic changes present. No evidence of midline shift or areas of brain edema. The calvarium is intact. The visualized paranasal sinuses and mastoid air cells are essentially clear . IMPRESSION: No evidence of acute intracranial abnormality.
[2024-12-20 19:58] VITALS: BP 135/70; TEMP 97.4
== END 2024-12-20 21:35 | DRG 643 ==
LOC: ER 09:42 → ERHOLD 12:51 → 4TH 13:40 → OBSVTOIN 12-12 20:02 → 3RD-ICU 12-13 00:25 → 4TH 12-14 12:23
PROVIDERS: ADMIT Hospitalist; ATTEND Hospitalist
PROC: 02HV33Z Insertion of Infusion Device into Superior Vena Cava, Percutaneous Approach (ICD-10-PCS; principal; 2024-12-13)
DX: E22.2 Syndrome of inappropriate secretion of antidiuretic hormone (principal); S06.310A Contusion and laceration of right cerebrum without loss of consciousness, initial encounter; N39.0 Urinary tract infection, site not specified; E86.0 Dehydration; E78.5 Hyperlipidemia, unspecified; E83.42 Hypomagnesemia; H91.90 Unspecified hearing loss, unspecified ear; K59.00 Constipation, unspecified; B96.89 Other specified bacterial agents as the cause of diseases classified elsewhere; R29.6 Repeated falls; Z60.2 Problems related to living alone; Z91.81 History of falling; W18.30XA Fall on same level, unspecified, initial encounter; Y93.9 Activity, unspecified; Y92.019 Unspecified place in single-family (private) house as the place of occurrence of the external cause; Y99.9 Unspecified external cause status; Z90.710 Acquired absence of both cervix and uterus; Z90.49 Acquired absence of other specified parts of digestive tract; Z87.891 Personal history of nicotine dependence
CPT/HCPCS: 36415; 51702; 70450; 70551; 71045; 72125; 72148; 74176; 80048; 80053; 80069; 80074; 81001; 82140; 82533; 82550; 82607; 82728; 83540; 83605; 83735; 83930; 83935; 84100; 84132; 84300; 84439; 84443; 84550; 85025; 85610; 85730; 86038; 86140; 87040; 87077; 87086; 87088; 87186; 93005; 96365; 97110; 97116; 97161; 97530; 99285; G0378; J0696; J1100; J1650; J2270; J2800; J3010; J3480; J7030

== ENCOUNTER 2024-12-20 13:19 | Inpatient (IN) | payer OTHER ==
[2024-12-20] MEDS: QUETIAPINE 25 MG TAB PO SCH (22:00)
[2024-12-20] MEDS ORDERED: LACTULOSE 20 GM/30 ML UCUP PO PRN (22:13)
[2024-12-21 06:20] LABS: Absolute Eosinophils 0.2 K/uL (0-0.5); Absolute Lymphocytes (CBC) 2.2 K/uL (0.7-4.9); Absolute Neutrophil 9.3 K/uL (1.8-8.0); Basophils % 0.2 % (0-1.3); Eosinophils % 1.5 % (0-4.4); Hematocrit 36.2 % (36.0-45.0); Hemoglobin 12.6 g/dL (12.0-15.0); Lymphocytes % 15.9 % (15.3-44.8); MCH 31.6 pg (27.0-35.0); MCHC 34.8 g/dL (32.0-36.0); MCV 90.8 fL (80-100); MPV 7.5 fL (7.6-11.3); Monocytes % 14.8 % (3.3-12.3); Neutrophils % 67.6 % (41.7-73.7); Platelets 288 thou/uL (152-406); RBC Red Blood Cell Count 3.98 M/uL (3.86-4.86); Red Cell Distribution Width 12.7 % (12.1-15.2)
[2024-12-21 06:47] LABS: Albumin 2.2 g/dL (3.4-5.0); Anion Gap 10.1 mEq/L (5.0-15.0); Magnesium 2.1 mg/dL (1.6-2.4); Potassium 4.1 mEq/L (3.5-5.1); Prealbumin 19.8 mg/dL (20-40)
[2024-12-21] MEDS: FLU (Fluarix Triv) TS24-25(6MOS UP)/PF 45 MCG/0.5 ML Syringe IM ONE (07:45)
[2024-12-21] MEDS: PANTOPRAZOLE 40MG TABLET PO SCH (08:56)
[2024-12-21] MEDS: HYDROCODONE/APAP 5/325 MG TAB PO PRN (08:56)
[2024-12-21] MEDS: SODIUM CHLORIDE 0.9% 10ML INJ IV SCH (08:58)
[2024-12-21] MEDS: SODIUM CHLORIDE 1 GM TAB PO SCH (10:32)
[2024-12-21] MEDS ORDERED: QUETIAPINE 25 MG TAB ONE (18:41)
[2024-12-21] MEDS: QUETIAPINE 25 MG TAB PO SCH (20:26)
--- NOTE | 2024-12-21 22:41 | HP ---
Date of Admission: 12/20/2024 Time Of Service: 1 p.m. Chief Complaint: "I fell, hit my head and I was bleeding." History Of Present Illness: Ms. Diez is an 89-year-old patient with multiple medical problems inclu ding dyslipidemia, multiple remote falls resulting in lower thoracic and lumbar compression fractures , which healed by secondary intention without surgery. She lives alone, but has several children who check in on her. Prior to admission to the acute care hospital on the 12 of December, she was carryi ng large items into her house and this was about a week prior. When she lost her balance, fell, hit her head against a brick wall. She denies loss of consciousness. She did not immediately seek medic al attention, but Wednesday evening, son-in-law was able to pick her up and get her back to bed and ar range furniture for her to ambulate by furniture walking. She fell a second time on Wednesday evening and a third time on Wednesday. She woke up on the morning of the and had pain throughout the body , difficulty moving her legs. She came to [facility], was evaluated, found to have urinary tract infection, elevated white blood cell count, positive nitrites, greater than 50 bacteria. Her w herrera blood cell count elevated to 16,700. She was treated with oral antibiotics and eventually IV an tibiotics. MRI of the brain identified a ions-ib-porrgped amount of signal within the periventricula r deep white matter, probably secondary to chronic small vessel ischemic disease. At that point, the re was no acute ischemic hemorrhagic change identified. However, a gradient sequence study did demon strate low signal in the right cerebral cortex, presumably hemosiderin and that was followed by CT sc an of the head which showed very small amount of subdural bleed along the convexities bilaterally. N o mass effect was seen. MRI of the lumbar spine on the did show marrow signal abnormalities inv olving the lumbar extending into the sacral ala related to the subacute fractures. She had a stable anterior wedge compression deformity at T12, L4, and T11. She had moderate to advanced spondylitic l ower spinal changes, worsened at L4 with vertebral cortical buckling. This contributed to at least m oderate central canal stenosis at L3-4, mild central canal stenosis at L4-5, and effacement of the th ecal sac at L5-S1. There were varying degrees of foraminal narrowing up to moderate bilaterally at L 3 and L4. She did have significant pain in the back due to the falls and fractures in addition to th e subdural hematoma. She did begin physical therapy, was only able to ambulate about 20 feet and req uired moderate assistance. She also was unable to perform much of her activities of daily living, up per and lower body dressing, donning and doffing footwear. Prior to the fall, she was fully independ ent ambulating at home without an assistive device, cooking, cleaning, driving. Due to the need of m oderate assistance for mobility and all of her activities of daily living, she is determined to be a good candidate for inpatient rehabilitation to help her return to her prior level of functioning and reduce the risk of rehospitalization. Past Medical History: As noted above including dyslipidemia, lumbar spondylosis, multiple fractures. Past Surgical History: Cholecystectomy, hysterectomy, bladder sling surgery. Social History: She lives alone, but has a large family of 8 children who check in on her, a son who is very close, and there is multiple family members from out of town who can help as well. Denied a ny recent smoking. Smoked 40 years ago. No alcohol or IV drug use. Family History: Noncontributory. Allergies: NO KNOWN DRUG ALLERGIES. Medications: [place] 5/325 every 6 hours as needed, lactulose 10 g twice daily as needed, melatonin 3 mg at bedtime, Protonix 40 mg daily, Seroquel 25 mg at bedtime, sodium chloride 1 g twice daily. Laboratory Studies: White blood cell count is 13.7, on the it was 18.1 and neutrophils were 74. 2 on the , today is 67.6. Hemoglobin 12.6, hematocrit 36.2, platelets 288. Sodium did improve f rom 121 on to 128 on the , potassium 4.1, chloride 92, carbon dioxide 30, BUN 18, creatinine 0.43, glucose 103, calcium 7.8, magnesium 2.1, albumin 2.2, prealbumin 19.8. She on the Nov uary had a urine osmolality of 549. Random urine sodium was 87, random urine potassium 37.0, and uri ne total protein was negative. CASEY screen on the negative. Hepatitis panel nonreactive. Her most recent head CT scan done 12/20/2024 showed no evidence of acute intracranial abnormality, th ere is moderate brain atrophy, moderate periventricular deep white matter small vessel ischemic disea se. No evidence of midline shift. No hydrocephalus and no intracranial hemorrhage identified. Review of Systems: Currently, reports some mild to moderate back pain and some myalgias and arthralgias. No headache. No loss of vision. No change in taste and swallowing. No new findings. She has no other positives on a 10-point systems review. Current Level Of Functioning: Eating, setup assistance. Grooming, setup assistance. Moderate derrick tance for bathing, upper body dressing, lower body dressing, and toileting along with wheelchair and bed mobilization. Toilet transfers, moderate assistance. Ambulation, moderate assistance, covered 3 5 feet. Comprehension and expression clear. Physical Examination: Vital Signs: Blood pressure 122/74, pulse 82, respiratory rate 16 to 20, temperature 97.9, oxygen sa turation 97%. General: Ms. Diez is resting comfortably in bed in between therapy sessions. HEENT: She is normocephalic, atraumatic. Sclerae anicteric. Oropharynx pink, moist. Neck: Supple. Chest: Clear. Heart: Regular. Extremities: No significant edema, cyanosis, or clubbing. Diffuse weakness of upper and lower extre mity and normal tone in the upper and lower extremities. Rehab And Medical Assessment And Plan: Ms. Diez is an 89-year-old patient in the rehabilitation [facility] with impairment category 02, trauma, traumatic brain injury. Impairment group code is 02.22, traum atic closed head injury. Etiologic diagnosis, subdural hematoma. Her comorbidities include decrease d mobility, decreased physical functioning, insomnia, hyponatremia, GE reflux, anxiety. Plan: 1.She will have physical, occupational, and if need be speech therapy 3.5 hours, 5 of 7 days. 2.Sodium chloride 1 g twice daily. 3.Seroquel 25 mg at bedtime for insomnia and for mood stabilization. 4.Protonix for GE reflux. 5.Melatonin for insomnia. She does have lactulose on board to address stools. She has moderate jeff k pain and is on [place] 5/325 for pain related to her multiple lumbar compression fractures. Comorbidities That Are Impacting Rehabilitation: As noted, she has multiple lumbar compression fract ures requiring [place]. May add gabapentin to minimize the need for narcotics. Otherwise, she has jorge e issues of requiring mood stabilization. She has Seroquel on board. She has hyponatremia which is being corrected. She did mention that she eats a lot of salt and has always had hyponatremia. Rehab Specific Plan: Ms. Diez will have physical and occupational therapy 3 hours a day, 5 of 7 day s, to improve her ability to transfer from a bed to a chair to a rolling walker to a wheelchair, on a nd off the toilet, in and out of the shower, also therapy to help mobilize more than household distan wyatt, up and down several steps perhaps 10, and mobilized a wheelchair more than household distances. If need be, Speech will help with cognitive decision-making and safety awareness and to minimize ris k of falling. Ms. Diez and family members at bedside have a good understanding of the process of admission to the inpatient rehabilitation unit and how she will benefit from physical, occupational, and if need be sp eech therapy. She will have 24 hours a day, 7 days a week, skilled rehabilitation and nursing, daily physician evaluation and management, social services assistant evaluation and management for discharge plannin g, home equipment, and continuing therapy along with physician followup. If need be, additional help will be sought from the Hospitalist service. Barriers To Discharge: As noted, she has multiple falls over an extended period of time and at high risk of continued falls. She may require close supervision or 24 hours supervision for safety awaren ess and to minimize risk of falling. As again noted, multiple lumbar and thoracic fractures identifi ed, subacute. If need be, mcc may be required. Length Of Stay: About 10 days. Disposition: Home with family and continued therapy via Home Health as expected. Prognosis: Good. Code Status: Full code. Rehab Specific Goals: 1.Become independent with upper and lower body dressing and donning and doffing of footwear. 2.Independently mobilize a wheelchair 250 feet. 3.Independently ambulate with a rolling walker 250 feet. 4.Independently go up and down 10 steps with bilateral handrails. 5.Independently do all dressing, upper and lower body and donning and doffing footwear. 6.Independently make safe cognitive decisions. 7.Independently follow all medications, followups, and can be able to continue therapy after eating. The above goals were reviewed with Ms. Diez and she is in agreement. By signing this document, I acknowledge I personally performed a full physical examination on Ms. Galvan is no later than 24 hours after her admission to the inpatient rehabilitation facility and determined that she is able to tolerate the above course of treatment at an intensive level for a reasonable pe riod of time. A detailed individualized plan of care for her will be completed by hospital day 4 bas ed on the preadmission screen, history and physical, and therapy evaluations. ASIM Voice ID: [id number]
--- NOTE | 2024-12-22 14:51 | P.RH.PN ---
Estimated Length of Stay: 13 Expected Discharge Date: 12/30/24 Discharge Disposition Plan: Home Family Support: Yes Half-Way Goal: Mobility, Transfers, Self Care Vital Signs: Last Vital Signs Temp 97.2 F 12/22/24 08:00 Pulse 83 12/22/24 08:00 Resp 14 12/22/24 08:00 BP 140/60 12/22/24 08:00 Pulse Ox 95 12/22/24 08:00 Laboratory: Laboratory Last Values WBC 13.70 thou/uL (4.3-10.9) H 12/21/24 05:40 RBC 3.98 M/uL (3.86-4.86) 12/21/24 05:40 Hgb 12.6 g/dL (12.0-15.0) 12/21/24 05:40 Hct 36.2 % (36.0-45.0) 12/21/24 05:40 MCV 90.8 fL (80-100) 12/21/24 05:40 MCH 31.6 pg (27.0-35.0) 12/21/24 05:40 MCHC 34.8 g/dL (32.0-36.0) 12/21/24 05:40 RDW 12.7 % (12.1-15.2) 12/21/24 05:40 Plt Count 288 thou/uL (152-406) 12/21/24 05:40 MPV 7.5 fL (7.6-11.3) L 12/21/24 05:40 Neutrophils % 67.6 % (41.7-73.7) 12/21/24 05:40 Lymphocytes % 15.9 % (15.3-44.8) 12/21/24 05:40 Monocytes % 14.8 % (3.3-12.3) H 12/21/24 05:40 Eosinophils % 1.5 % (0-4.4) 12/21/24 05:40 Basophils % 0.2 % (0-1.3) 12/21/24 05:40 Absolute Neutrophils 9.3 K/uL (1.8-8.0) H 12/21/24 05:40 Absolute Lymphocytes 2.2 K/uL (0.7-4.9) 12/21/24 05:40 Absolute Monocytes 2.0 K/uL (0.1-1.3) H 12/21/24 05:40 Absolute Eosinophils 0.2 K/uL (0-0.5) 12/21/24 05:40 Absolute Basophils 0.0 K/uL (0-0.5) 12/21/24 05:40 Sodium 128 mEq/L (136-145) L D 12/21/24 05:40 Potassium 4.1 mEq/L (3.5-5.1) 12/21/24 05:40 Chloride 92 mEq/L (98-107) L 12/21/24 05:40 Carbon Dioxide 30 mEq/L (21-32) 12/21/24 05:40 Anion Gap 10.1 mEq/L (5.0-15.0) 12/21/24 05:40 BUN 18 mg/dL (7-18) 12/21/24 05:40 Creatinine 0.43 mg/dL (0.55-1.02) L 12/21/24 05:40 Est GFR (CKD-EPI) 93 ml/min (=/>90) 12/21/24 05:40 Glucose 103 mg/dL (74-106) 12/21/24 05:40 Calcium 7.8 mg/dL (8.5-10.1) L 12/21/24 05:40 Magnesium 2.1 mg/dL (1.6-2.4) 12/21/24 05:40 NT-Pro-B Natriuret Pep 104 pg/mL (<450) 12/21/24 05:40 Albumin 2.2 g/dL (3.4-5.0) L 12/21/24 05:40 Prealbumin 19.8 mg/dL (20-40) L 12/21/24 05:40 Weight: 142 lb 3.2 oz Wound Present: No Closed Surgical Incision Present: No Physician Update: Labs were reviewed and has low Na. Will add NaCl 2 grams bid. Min assist bed mobility, RW 40' and 90' with min assist. Up and down 3 steps. WC 100' with min assit. Mod assist toileting, max lower body dressing. Has lower back pain with add Lidocaine patch. Summary: Patient's care plan and retirement goals have been reviewed and revised as necessary. Please see the Rehabilitation Signature page for all necessary signatures.
[2024-12-22] MEDS: SODIUM CHLORIDE 1 GM TAB PO SCH (17:29)
[2024-12-22] MEDS: MAGNESIUM OXIDE 400 MG TAB PO SCH (18:31)
[2024-12-23] MEDS: CRANBERRY FRUIT EXTRACT 425 MG CAPSULE PO SCH (07:54)
[2024-12-23] MEDS: LIDOCAINE 4% PATCH TOP SCH (07:56)
[2024-12-23] MEDS: Mupirocin NASAL 2 APPL/1 GM TUBE NAS SCH (19:38)
--- NOTE | 2024-12-23 22:32 | RAD REPORT ---
Procedure: Chest Single View HISTORY: PICC line placement FINDINGS: PICC line has been placed into the proximal to mid SVC
[2024-12-24] MEDS: MELATONIN 3 MG TABLET PO PRN (02:21)
[2024-12-24 02:51] LABS: Absolute Eosinophils 0.2 K/uL (0-0.5); Absolute Lymphocytes (CBC) 2.1 K/uL (0.7-4.9); Absolute Monocytes 1.2 K/uL (0.1-1.3); Absolute Neutrophil 4.5 K/uL (1.8-8.0); Basophils % 0.5 % (0-1.3); Eosinophils % 2.4 % (0-4.4); Hematocrit 33.5 % (36.0-45.0); Hemoglobin 11.5 g/dL (12.0-15.0); Lymphocytes % 26.3 % (15.3-44.8); MCH 31.4 pg (27.0-35.0); MCHC 34.3 g/dL (32.0-36.0); MCV 91.7 fL (80-100); MPV 7.3 fL (7.6-11.3); Monocytes % 14.9 % (3.3-12.3); Neutrophils % 55.9 % (41.7-73.7); Platelets 271 thou/uL (152-406); RBC Red Blood Cell Count 3.65 M/uL (3.86-4.86); Red Cell Distribution Width 13.1 % (12.1-15.2)
[2024-12-24 03:06] LABS: Anion Gap 7.8 mEq/L (5.0-15.0); Potassium 3.8 mEq/L (3.5-5.1)
[2024-12-24] MEDS: SODIUM CHLORIDE 0.9% 10ML INJ IV SCH (20:25)
[2024-12-25] MEDS: BACLOFEN 10 MG TAB PO PRN (01:48)
[2024-12-25] MEDS: GABAPENTIN 100 MG CAP PO SCH (20:13)
--- NOTE | 2024-12-25 22:52 | PN ---
Date of Progress Note: 12/25/2024 Time Of Service: 1 p.m. Subjective: Ms. Diez is in a wheelchair, mobilizing around the unit. She denies any new complaints , such as fevers or chills, nausea, vomiting. Does note some improving strength in the upper and low er extremities. No new or focal deficits. Objective: No fevers, chills, nausea, vomiting. No myalgias, arthralgias. No rash. No psychiatric complaints. Physical Examination: Vital Signs: Blood pressure 113/69, pulse 95, respiratory rate 18, temperature 98.3, oxygen saturati on 97%. Weight 151 pounds, height 5 feet 1 inch, BMI 28.6. General: Ms. Diez is resting comfortably. HEENT: She is normocephalic, atraumatic. Sclerae anicteric. Oropharynx pink and moist. Neck: Supple. Chest: Clear. Heart: Regular. Neurologic: She has mild diffuse weakness in upper and lower extremities. No focal neurological def icits. Laboratory Studies: White blood cell count 8.0, hemoglobin 11.5, platelets 271. Sodium 133, potassi um 3.8, chloride 99, carbon dioxide 30, BUN 9, creatinine 0.39, glucose 97. Calcium 7.8, albumin 2.2 , magnesium 19.8. X-ray/imaging: Chest x-ray, done on 12/23/2024, shows PICC line in place proximal to the mid superio r vena cava. Medications: [place] 5/325 every 6 hours as needed, baclofen 5 mg at night for muscle spasms, gabapent in 100 mg twice daily, lactulose 10 mg as needed for constipation twice daily. She has lidocaine 2 p atches applied daily, magnesium oxide 400 mg twice daily, melatonin 3 mg at night, Protonix 40 mg christy ly, Seroquel 25 mg at bedtime. She has sodium chloride 2 g twice daily. Progress Made With Physical And Occupational Therapy: Today, with physical therapy, she did ambulate with a rolling walker 250 feet once and 500 feet twice with contact guard assistance. Emphasis plac ed on upright posture. She ascended and descended 10 steps and then 5 steps with bilateral handrails with contact guard assistance. With occupational therapy, minimum assistance with toileting. Wipin g after bowel movement, assistance required. She also worked with a 3-pound dowel in 2 sets of 20 re petitions with the upper extremities. Assessment: Ms. Diez is an 89-year-old patient, admitted to the rehabilitation unit with traumatic closed head injury and subdural hematoma. She has also decreased mobility, decreased physical functi oning, insomnia, hyponatremia, gastroesophageal reflux, and anxiety. She is making great progress, r ecovering in terms of her ability to perform activities of daily living and mobilize, and she is doin g well with cognition and swallowing. Did have some muscle spasms that are improving. Plan: She will continue with physical and occupational therapy 3 hours a day, 5 of 7 days. Continue with the sodium replacement for hyponatremia, Seroquel for insomnia and mood stabilization, Protonix for GE reflux, melatonin also for her insomnia, Stur[place]vant for moderate pain. She has lidocaine patch an d magnesium. Comorbidities Impacting Rehabilitation: Her comorbidities are stably managed and do not negatively i mpact her rehabilitation. TRENT/MODL Voice ID: [id number] Report ID: [id number]
[2024-12-26] MEDS: TRAMADOL HCL 50 MG TAB PO PRN (16:54)
[2024-12-26] MEDS: ACETAMINOPHEN 325 MG TABLET PO PRN (19:42)
[2024-12-26] MEDS: DULOXETINE 20 MG CAP PO SCH (19:44)
[2024-12-26] MEDS: TRAMADOL HCL 50 MG TAB PO SCH (20:00)
[2024-12-26] MEDS: PIPER TAZO 3.375 GM in NA CHLORIDE 0.9% 100 ML IV SCH (20:06)
[2024-12-26 20:32] LABS: Absolute Basophils 0.1 K/uL (0-0.5); Absolute Lymphocytes (CBC) 0.5 K/uL (0.7-4.9); Absolute Monocytes 1.4 K/uL (0.1-1.3); Absolute Neutrophil 15.4 K/uL (1.8-8.0); Basophils % 0.4 % (0-1.3); Hematocrit 35.7 % (36.0-45.0); Hemoglobin 12.4 g/dL (12.0-15.0); MCH 31.6 pg (27.0-35.0); MCHC 34.8 g/dL (32.0-36.0); MCV 90.7 fL (80-100); MPV 7.6 fL (7.6-11.3); Monocytes % 7.9 % (3.3-12.3); Neutrophils % 88.7 % (41.7-73.7); Platelets 275 thou/uL (152-406); RBC Red Blood Cell Count 3.93 M/uL (3.86-4.86); Red Cell Distribution Width 12.9 % (12.1-15.2)
--- NOTE | 2024-12-26 20:35 | RAD REPORT ---
EXAM: Chest Single View HISTORY: r/o pneumonia COMPARISON: 12/23/2024 FINDINGS: LUNGS/PLEURA: Increase coarsening of pulmonary interstitium compared with prior.. No focal consolidat ion. MEDIASTINUM: The mediastinal silhouette is within normal limits. CARDIAC: Stable size and configuration. UPPER ABDOMEN: No significant abnormality. BONES: No acute abnormality. LINES/TUBES/OTHER: Left subclavian approach PICC with tip overlying the proximal SVC. IMPRESSION: Increased prominence of the pulmonary interstitium compared with 12/23/2024 which is nonspecific. This could reflect developing edema. No consolidative airspace disease.
[2024-12-26 20:39] LABS: Specific Gravity 1.009 (1.005-1.030); Sqamous Epithelial None Seen /HPF (None Seen); Urine Bacteria <20 /HPF (<20); Urine Bilirubin NEGATIVE (Negative); Urine Blood 1+ (Negative); Urine Clarity Extremely Turbid (Clear); Urine Color Light-Yellow (Yellow); Urine Crystals Unidentified Few /HPF (None Seen); Urine Culture Reflex Order REFLEXED; Urine Glucose NEGATIVE (Negative); Urine Ketones NEGATIVE (Negative); Urine Micro Reflex YN NO BILL MICROSCOPIC; Urine Mucus 1+ /HPF (None Seen); Urine Nitrite 2+ (Negative); Urine Protein 1+ (Negative); Urine Urobilinogen Normal (Normal); Urine WBC >50 /HPF (<5); Urine pH 7.5 (5.0-7.0)
--- NOTE | 2024-12-26 23:02 | PN ---
Date of Progress Note: 12/26/2024 Time Of Service: 1:00 p.m. Subjective: Ms. Diez is a her room doing therapy. She is feeling better about her progress, making strides in terms of recovering her strength and coordination in the upper and lower extremities. Denies any pain. Review of Systems: No fevers, chills, nausea, vomiting, myalgias, arthralgias. No rash. No other complaints. Physical Examination: Vital Signs: Blood pressure 126/66, pulse 82, respiratory rate 16, temperature 97.2, oxygen saturation 96%. General: Ms. Diez is less resting comfortably. She is in no acute distress. HEENT: She appears normocephalic, atraumatic. Sclerae anicteric. Oropharynx pink, moist. Neck: Supple. Chest: Clear. Heart: Regular. Extremities: No edema or cyanosis noted. Laboratory Studies: No new laboratory studies in the last few days. X-ray/imaging: No new x-rays or imaging. Medications: Her medications have been reviewed. She is on duloxetine 20 mg twice daily for neuropathic pain. She continues gabapentin now 100 mg twice daily. Other medications are unchanged including lidocaine patch and she has tramadol, which is scheduled at 50 mg twice daily. Progress Made With Physical And Occupational Therapy: With physical therapy today, she mobilized wheelchair 250 feet with supervision. She did bed mobility trials with minimal assistance, qjn-sm-kyqmi transfers with minimum assistance, iynxw-gw-zeaan transfers with minimum assistance. She did move slowly due to pain and again pain medications were adjusted. She also later ambulated 500 feet twice with a rolling walker with contact guard assistance and was up and down 15 steps with bilateral handrails with contact guard assistance. With occupational therapy, contact guard assistance for api-oq-cxudq transfers; wheelchair to edge of bed, she did have a contact guard assistance. Also, did bilateral upper extremity exercises with 2-pound Thera ball and a 2-pound dowel sheldon. Assessment: Ms. Diez is an 89-year-old patient in the rehabilitation unit with subdural hematoma, traumatic. She is doing very well. She has decreased mobility, decreased physical functioning, much improved mobility as well. She has insomnia, hyponatremia, gastroesophageal reflux, anxiety. She also has mild cognitive impairment, muscle spasms and pain medications were adjusted. Plan: She will continue with physical and occupational therapy 3 hours a day, 5 of 7 days. As noted, she had an adjustment made to the gabapentin. She has magnesium. She has scheduled tramadol. She has duloxetine and [place] as well for severe pain, sodium chloride tablets for replacement for hyponatremia. She will continue with therapy as noted and discharge will be in 2 days and she will continue therapy via Home Health. TRENT/CARLOS Voice ID: [id number] Report ID: [id number] MTDD
[2024-12-26] MEDS ORDERED: NA CHLORIDE 0.9% 1,000 ML ONE (23:18)
[2024-12-26] MEDS: NA CHLORIDE 0.9% 500 ML IV ONE (23:32)
[2024-12-26 23:34] LABS: Band Neutrophils 18 % (0-1); Differential Total Cells Count 100; Lymphocytes 2 % (15-42); Monocytes 6 % (0-10); Segmented Neutrophils 74 % (40-80)
[2024-12-26 23:35] LABS: Blood Morphology Comment NOT SEEN (NOT SEEN); Platelet Estimate ADEQ
[2024-12-27 06:12] LABS: Absolute Basophils 0.1 K/uL (0-0.5); Absolute Lymphocytes (CBC) 1.3 K/uL (0.7-4.9); Absolute Monocytes 2.5 K/uL (0.1-1.3); Absolute Neutrophil 19.5 K/uL (1.8-8.0); Basophils % 0.4 % (0-1.3); Eosinophils % 0.1 % (0-4.4); Hematocrit 31.2 % (36.0-45.0); Hemoglobin 10.7 g/dL (12.0-15.0); Lymphocytes % 5.4 % (15.3-44.8); MCH 31.4 pg (27.0-35.0); MCHC 34.3 g/dL (32.0-36.0); MCV 91.7 fL (80-100); MPV 7.2 fL (7.6-11.3); Monocytes % 10.7 % (3.3-12.3); Neutrophils % 83.4 % (41.7-73.7); Platelets 224 thou/uL (152-406); Red Cell Distribution Width 13.3 % (12.1-15.2)
[2024-12-27 06:28] LABS: Anion Gap 7.7 mEq/L (5.0-15.0); Magnesium 2.3 mg/dL (1.6-2.4); Potassium 4.7 mEq/L (3.5-5.1); Prealbumin 12.6 mg/dL (20-40)
[2024-12-27] MEDS: NA CHLORIDE 0.9% 1,000 ML IV SCH ×2 (06:51→18:49)
[2024-12-27] MEDS: CEFTRIAXONE 1,000 MG in NA CHLORIDE 0.9% 50 ML IVPB SCH (07:14)
--- NOTE | 2024-12-27 11:55 | P.CNS ---
Date of Consult: 12/27/24 Reason for Consult: fever/uti Requesting Physician: Joe Dwyer Chief Complaint: uti History of Present Illness: 89 yo F, PMH: recurrent falls, hyperlipidemia, hypertension, remote fractures and spondylosis of her lower T-spine and lumbar spine, recurrent UTIs, hx of bladder sling Patient admitted to 5th floor rehab for generalized weakness, frequent falls after developing small intracranial bleed. Overnight while at rehab, patient developed 102.4 fever yesterday evening associated with low blood pressure (80- 90s systolic), tachycardia HR 100s, leukocytosis 23.3. Patient is noted to have a history of recurrent UTIs / bladder sling and she just recently completed ~10 day course of IV rocephin to treat Citrobacter koseri UTI. (12/12-12/20) Repeat urinalysis is concerning for possible UTI. Urine culture obtained via straight cath. Patient was started on IV zosyn to treat possible UTI. She otherwise states she is feeling better this morning - denies LOC, no new/worsening symptoms Allergies No Known Drug Allergies Allergy (Verified 12/20/24 22:37) Unknown Home Medications: Hydrocodone 5/APAP 325 [[place] 5/325*] 1 tab PO Q6H PRN 12/20/24 Lactulose [Cephulac*] 10 gm PO BID PRN 12/20/24 Pantoprazole [Protonix Tab*] 40 mg PO DAILY 12/20/24 Quetiapine [Seroquel*] 25 mg PO BEDTIME 12/20/24 Acetaminophen [Tylenol*] 500 mg PO Q6H PRN tab 12/27/24 Baclofen [Lioresal*] 5 mg PO BEDTIME PRN #15 tab 12/27/24 Duloxetine [Cymbalta *] 20 mg PO BID #60 cap 12/27/24 Gabapentin [Neurontin*] 100 mg PO BID #60 cap 12/27/24 Lidocaine 4% Patch [Lidoderm 5% Patch*] 2 patch TOP DAILY pat 12/27/24 Magnesium Oxide [Mag 0X*] 400 mg PO BID tab 12/27/24 Melatonin [Melatonin*] 3 mg PO BEDTIME PRN PRN 12/27/24 Mupirocin Calcium [Bactroban Nasal*] 1 appl JOAQUIN BID #30 tube 12/27/24 Sodium Chloride Tab [Sodium Chloride*] 2 gm PO BIDWM #120 tab 12/27/24 Tamsulosin [Flomax*] 0.4 mg PO BEDTIME #30 cap 12/27/24 - Past Medical/Surgical History Diabetic: No -: Hyperlipidemiahas atorvastatin but is not taking it -: Menopausehas estradiol cream but is not using it -: Lumbar spondylosis -: Lumbar stenosis -: HTN -: Hypokalemia -: Hyponatremia -: UTI -: HLD -: Cholecystectomy -: Hysterectomy -: Bladder sling Psychosocial/ Personal History: Uses a cane at times otherwise ambulatory - Family History Father Medical History: Heart disease Sister Medical History: Other (see notes) Notes: Parkinson's - Social History Smoking Status: Unknown if ever smoked Alcohol use: No CD- Drugs: No Caffeine use: Yes Place of Residence: Home Review of Systems 10-point ROS is otherwise unremarkable Physical Examination Temp Pulse Resp BP Pulse Ox 97.7 F 72 17 108/49 L 100 12/27/24 07:28 12/27/24 07:28 12/27/24 07:28 12/27/24 07:28 12/27/24 07:28 Laboratory Data (last 24 hrs) 12/27/24 12/27/24 12/26/24 05:51 05:51 20:00 WBC 23.30 H Hgb 10.7 L D Hct 31.2 L Plt Count 224 Sodium 128 L 127 L Potassium 4.7 D 4.0 BUN 17 12 Creatinine 0.73 0.54 L Glucose 125 H 129 H Magnesium 2.3 2.0 12/26/24 12/26/24 12/26/24 20:00 19:10 19:10 WBC 17.40 H Cancelled Hgb 12.4 Cancelled Hct 35.7 L Cancelled Plt Count 275 Cancelled Sodium Cancelled Potassium Cancelled BUN Cancelled Creatinine Cancelled Glucose Cancelled Magnesium Cancelled Physician Review Additional Text: Physical Exam: GEN: Alert, NAD CV: Regular rate and rhythm, 1+ b/l edema to knees Pulm: Nonlabored respirations on room air, clear bilaterally ABD: soft, nontender, nondistended Neuro: Normal speech, normal affect Problem List: Hypotension, transient Recurrent UTIs Hx of Bladder sling Generalized Weakness/frequent falls Recent intracranial Bleed Hypertension Hyperlipidemia Insomnia Hypotension, transient Recurrent UTIs Hx of Bladder sling Patient developed 102.4 fever yesterday evening. Patient hypotensive 80-90s at the time; +tachycardic, +leukocytosis 23.3 on multiple medications which could lower BP. Was dealing with some intermittent hypotension during hospitalization prior to rehab. has history of recurrent UTIs. Patient recently completed ~10 days of IV rocephin to treat Citrobacter koseri UTI. Denies urinary symptoms. Denies any constipation or diarrhea. Reports daily BM. UA suspicious for possible UTI continue empiric zosyn (12/26-) follow blood/urine cultures continue IV fluids lactate improved hypotension likely pre-renal Generalized Weakness/frequent falls Recent intracranial Bleed continue PT Daily labs Hypertension Hyperlipidemia Insomnia continue home meds as appropriate VTE: SCD Time Spent Managing Pts care (In Minutes): 70
[2024-12-27] MEDS: TAMSULOSIN 0.4 MG SR CAP PO SCH (19:36)
--- NOTE | 2024-12-28 00:14 | PN ---
Date of Progress Note: 12/27/2024 Time: 1:00 p.m. Subjective: Ms. Diez is actually doing very well this afternoon from a very riccardo night. Overnight , she had significant drop in blood pressure, fever over 102, and had very difficult urination with a PureWick. She had some pelvic pain. She was started on Zosyn for a presumed infection at that poin t and overnight had a drop in blood pressure with systolic down to 81 and diastolic around 41 and roberto t was just 20 minutes after 11 last night. She was initiated on IV fluids and an attempt was made to place a Cochran, but that was unsuccessful. PureWick was continued. The hospitalist service was cons ulted and she was eventually seen by Dr. Mitchell Kumar at that point. He did see her early in the mo rning when she was doing better. The fever again was 102.4 and she was hypotensive with leukocytosis and she was then again receiving IV fluids along with dual antibiotics, IV Rocephin, and Zosyn. She clinically improved significantly and was able to be interactive once the Cochran was placed and large cloudy urine was captured. The urinalysis showed extreme turbidity, pH 7.5, blood 1+, nitrite 2+, e sterase 500, red blood cells 11-20, white blood cells greater than 50, and 1+ protein, bacteria less than 20. Review of Systems: Again, no current fevers. Fevers were last night. No chills. Mild myalgias and arthralgias. No ra sh. No other complaints or issues. She continues to have diffuse weakness without a significant foc al deficit despite the subdural hematoma, which she has. Laboratory Studies: Ordered today. White blood cell count increased to 23.3. On the , it was 8 .0. Neutrophils increased from 55.9 to 83.4. Sodium was 128, potassium 4.7, chloride 96, carbon di oxide 29, BUN 17, creatinine 0.73, glucose 125. Her lactic acid was 1, that is normal. Procalcitoni n 0.18, unremarkable. Prealbumin of 12.6, albumin 2.0. Medications: Tylenol 500 mg every 6 hours as needed, [place] 5/325 every 6 hours as needed, baclofen 5 mg muscle spasm at night, Cymbalta 20 mg daily, gabapentin 100 mg twice daily, lactulose 10 g twice daily, lidocaine patch to apply topically daily to the knee, magnesium oxide 400 mg twice daily, moira tonin 3 mg at bedtime, Bactroban nasal spray 1 nasal spray twice daily, Protonix 40 mg daily, Zosyn 3 .375 mg every 8 hours, Seroquel 25 mg at bedtime. She did receive 1 g of Rocephin in addition to sod ium chloride 2 g twice daily. Receiving normal saline at 75 cc an hour. Flomax 0.4 mg at bedtime, tramadol 50 mg every 6 hours and schedule 50 mg twice daily with p.r.n. every 6 hours. Progress Made With Physical And Occupational Therapy: Today with physical therapy, she was able to a mbulate 150 feet with a rolling walker with standby assistance. Sat at edge of bed independently, pe rformed multiple yrr-ys-idkqj transfers with a rolling walker independently. She did feel somewhat t ired today as she had an exhaustive night. With occupational therapy, independent for supine to sit transfers and completed toilet transfers with independence. She was in a pleasant mood and worked wi th the therapist. Again, urinary incontinence and now a Cochran catheter is in place. Assessment: Ms. Deiz is an -zbpp-ewl patient in rehabilitation unit with subdural hematom a that is traumatic. She had significantly dropped the low blood pressure with fever over 102 and smith d a marked urinary tract infection with urinary retention. Cochran catheter is now placed and she is a ble to decompress the bladder. Her white blood cell count is still very elevated, will be rechecked tomorrow. She is again on strong antibiotics coverage. She has decreased mobility, decreased physic al functioning, hyponatremia, insomnia, GE reflux, anxiety, muscle spasms. Plan: 1. She will continue with physical and occupational therapy 3 hours a day, 5 of 7 days. 2. Continue with Zosyn. 3. Follow up white blood cell count in the morning. Follow up sodium level, which is low and for add ressing her muscle spasms, insomnia and continue folic acid. Monitor input and output. We will cont inue to support her blood pressures. Currently, her vital signs are blood pressure 127/60, pulse 88, respiratory rate 17, temperature 97.8, oxygen saturation 93%. Comorbidities Impacting Rehabilitation: She has of course the significant drop in blood pressure ove rnight with high fever and now that is improving secondary to urinary tract infection. She does not have evidence of sepsis at this point in the blood work with procalcitonin and lactic acid being nega tive; however, earlier last night she did meet criteria and that is why the blood work was done. She had a chest x-ray, which had shown some mildly increased potential fluid in the lung. Incentive spi rometry will be strongly encouraged. Currently, she will continue with therapy. The plan is for her to be discharged on Wednesday, today is Wednesday. TRENT/CARLOS Voice ID: [id number] Report ID: [id number]
[2024-12-28 00:31] VITALS: BMI 28.6
[2024-12-28 07:47] LABS: Absolute Basophils 0.1 K/uL (0-0.5); Absolute Eosinophils 0.2 K/uL (0-0.5); Absolute Lymphocytes (CBC) 1.3 K/uL (0.7-4.9); Absolute Monocytes 1.4 K/uL (0.1-1.3); Absolute Neutrophil 8.1 K/uL (1.8-8.0); Basophils % 0.5 % (0-1.3); Eosinophils % 1.8 % (0-4.4); Hematocrit 27.6 % (36.0-45.0); Hemoglobin 9.3 g/dL (12.0-15.0); Lymphocytes % 11.7 % (15.3-44.8); MCH 31.2 pg (27.0-35.0); MCHC 33.8 g/dL (32.0-36.0); MCV 92.3 fL (80-100); MPV 7.1 fL (7.6-11.3); Monocytes % 12.5 % (3.3-12.3); Neutrophils % 73.5 % (41.7-73.7); Nucleated Red Blood Cells % 0.1 % (0-0); Platelets 204 thou/uL (152-406); RBC Red Blood Cell Count 2.99 M/uL (3.86-4.86); Red Cell Distribution Width 12.8 % (12.1-15.2)
[2024-12-28 08:05] LABS: Anion Gap 6.7 mEq/L (5.0-15.0); Potassium 3.7 mEq/L (3.5-5.1)
--- NOTE | 2024-12-28 12:23 | P.PN ---
Date of Service: 12/28/24 Subjective: feel better remains afebrile stallings in place ROS: 10 point ROS as noted above, otherwise negative Physical Exam: GEN: Alert, NAD CV: Regular rate and rhythm, 1+ b/l edema to knees Pulm: Nonlabored respirations on room air, clear bilaterally ABD: soft, nontender, nondistended Neuro: Normal speech, normal affect Problem List: Hypotension, transient Recurrent UTIs Hx of Bladder sling Generalized Weakness/frequent falls Recent intracranial Bleed Hypertension Hyperlipidemia Insomnia Hypotension, transient Recurrent UTIs Hx of Bladder sling Patient developed 102.4 fever on 12/26 evening. Patient hypotensive 80-90s at the time; +tachycardic, +leukocytosis 23.3 on multiple medications which could lower BP. Was dealing with some intermittent hypotension during hospitalization prior to rehab. has history of recurrent UTIs. Patient recently completed ~10 days of IV rocephin to treat Citrobacter koseri UTI. Denies urinary symptoms. Denies any constipation or diarrhea. Reports daily BM. blood cx (12/27): NGTD urine cx (12/27): 4+ GNR continue empiric zosyn (12/26-) lactate improved hypotension likely pre-renal s/p IV fluids. BP stable. No further episodes of hypotension afebrile, leukocytosis improving Generalized Weakness/frequent falls Recent intracranial Bleed continue PT Daily labs Hypertension Hyperlipidemia Insomnia continue home meds as appropriate Code: Full Dispo: Home Time Spent Managing Pts Care (In Minutes): 55
--- NOTE | 2024-12-28 13:42 | P.RH.PN ---
Estimated Length of Stay: 13 Expected Discharge Date: 12/30/24 Discharge Disposition Plan: Home Family Support: Yes Intermediate Goal: Mobility, Transfers, Self Care Vital Signs: Last Vital Signs Temp 97.7 F 12/28/24 07:21 Pulse 78 12/28/24 07:21 Resp 16 12/28/24 08:11 BP 140/61 12/28/24 07:21 Pulse Ox 96 12/28/24 08:11 Laboratory: Laboratory Last Values WBC 11.10 thou/uL (4.3-10.9) H 12/28/24 07:35 RBC 2.99 M/uL (3.86-4.86) L 12/28/24 07:35 Hgb 9.3 g/dL (12.0-15.0) L D 12/28/24 07:35 Hct 27.6 % (36.0-45.0) L 12/28/24 07:35 MCV 92.3 fL (80-100) 12/28/24 07:35 MCH 31.2 pg (27.0-35.0) 12/28/24 07:35 MCHC 33.8 g/dL (32.0-36.0) 12/28/24 07:35 RDW 12.8 % (12.1-15.2) 12/28/24 07:35 Plt Count 204 thou/uL (152-406) 12/28/24 07:35 MPV 7.1 fL (7.6-11.3) L 12/28/24 07:35 Plt Distribution Width Cancelled 12/26/24 19:10 Absolute Nucleated RBC Cancelled 12/26/24 19:10 Neutrophils % 73.5 % (41.7-73.7) 12/28/24 07:35 Lymphocytes % 11.7 % (15.3-44.8) L 12/28/24 07:35 Monocytes % 12.5 % (3.3-12.3) H 12/28/24 07:35 Eosinophils % 1.8 % (0-4.4) 12/28/24 07:35 Basophils % 0.5 % (0-1.3) 12/28/24 07:35 Nucleated RBC % Cancelled 12/26/24 19:10 Absolute Neutrophils 8.1 K/uL (1.8-8.0) H 12/28/24 07:35 Segmented Neutrophils 74 % (40-80) 12/26/24 20:00 Band Neutrophils 18 % (0-1) H 12/26/24 20:00 Absolute Lymphocytes 1.3 K/uL (0.7-4.9) 12/28/24 07:35 Lymphocytes 2 % (15-42) L 12/26/24 20:00 Monocytes 6 % (0-10) 12/26/24 20:00 Absolute Monocytes 1.4 K/uL (0.1-1.3) H 12/28/24 07:35 Absolute Eosinophils 0.2 K/uL (0-0.5) 12/28/24 07:35 Absolute Basophils 0.1 K/uL (0-0.5) 12/28/24 07:35 Diff Path Review Cancelled 12/26/24 19:10 Platelet Estimate Adeq 12/26/24 20:00 Morphology Comment Not seen (NOT SEEN) 12/26/24 20:00 Sodium 129 mEq/L (136-145) L 12/28/24 07:35 Potassium 3.7 mEq/L (3.5-5.1) D 12/28/24 07:35 Chloride 99 mEq/L (98-107) 12/28/24 07:35 Carbon Dioxide 27 mEq/L (21-32) 12/28/24 07:35 Anion Gap 6.7 mEq/L (5.0-15.0) 12/28/24 07:35 BUN 10 mg/dL (7-18) 12/28/24 07:35 Creatinine 0.43 mg/dL (0.55-1.02) L 12/28/24 07:35 Est GFR (CKD-EPI) 93 ml/min (=/>90) 12/28/24 07:35 Glucose 90 mg/dL (74-106) 12/28/24 07:35 Lactic Acid 1.0 mmol/L (0.4-2.0) 12/27/24 08:20 Calcium 7.2 mg/dL (8.5-10.1) L 12/28/24 07:35 Magnesium 2.3 mg/dL (1.6-2.4) 12/27/24 05:51 NT-Pro-B Natriuret Pep 104 pg/mL (<450) 12/21/24 05:40 Albumin 2.0 g/dL (3.4-5.0) L 12/27/24 05:51 Prealbumin 12.6 mg/dL (20-40) L 12/27/24 05:51 Procalcitonin 0.18 ng/mL (<0.50) 12/27/24 08:20 Urine Color Light-yellow (Yellow) 12/26/24 20:00 Urine Clarity Extremely turbid (Clear) H 12/26/24 20:00 Urine pH 7.5 (5.0-7.0) H 12/26/24 20:00 Ur Specific [place] 1.009 (1.005-1.030) 12/26/24 20:00 Glucose (UA)(Auto) Negative (Negative) 12/26/24 20:00 Urine Ketones Negative (Negative) 12/26/24 20:00 Urine Blood 1+ (Negative) H 12/26/24 20:00 Urine Nitrite 2+ (Negative) H 12/26/24 20:00 Urine Bilirubin Negative (Negative) 12/26/24 20:00 Urine Urobilinogen Normal (Normal) 12/26/24 20:00 Ur Leukocyte Esterase 500 Julianne/uL (Negative) H 12/26/24 20:00 Urine RBC 11-20 /HPF (None Seen) H 12/26/24 20:00 Urine WBC >50 /HPF (<5) H 12/26/24 20:00 Ur Squamous Epith Cells None seen /HPF (None Seen) 12/26/24 20:00 U Non-Squamous Epi Cells <5 /HPF (None Seen) 12/26/24 20:00 Unidentified Crystals Few /HPF (None Seen) 12/26/24 20:00 Urine Bacteria <20 /HPF (<20) 12/26/24 20:00 Urine Mucus 1+ /HPF (None Seen) 12/26/24 20:00 Urine Culture Reflexed Reflexed 12/26/24 20:00 Urine Total Protein 1+ (Negative) H 12/26/24 20:00 Weight: 155 lb 6.4 oz Wound Present: No Closed Surgical Incision Present: No Negative Pressure Wound Therapy Present: No Physician Update: She is doing much better with the treated UTI. Met 6/6 STG and 5/6 LTG. RW 250', stairs, ADL, transfers, toileting are independent. Summary: Patient's care plan and intermediate goals have been reviewed and revised as necessary. Please see the Rehabilitation Signature page for all necessary signatures.
[2024-12-29 05:33] LABS: Absolute Basophils 0.1 K/uL (0-0.5); Absolute Eosinophils 0.2 K/uL (0-0.5); Absolute Lymphocytes (CBC) 1.2 K/uL (0.7-4.9); Absolute Monocytes 0.8 K/uL (0.1-1.3); Absolute Neutrophil 4.3 K/uL (1.8-8.0); Basophils % 0.9 % (0-1.3); Eosinophils % 2.6 % (0-4.4); Hematocrit 26.6 % (36.0-45.0); Hemoglobin 9.4 g/dL (12.0-15.0); Lymphocytes % 17.8 % (15.3-44.8); MCH 32.3 pg (27.0-35.0); MCHC 35.3 g/dL (32.0-36.0); MCV 91.6 fL (80-100); MPV 7.6 fL (7.6-11.3); Monocytes % 12.5 % (3.3-12.3); Neutrophils % 66.2 % (41.7-73.7); Platelets 197 thou/uL (152-406); RBC Red Blood Cell Count 2.91 M/uL (3.86-4.86); Red Cell Distribution Width 12.9 % (12.1-15.2)
[2024-12-29 05:56] LABS: Anion Gap 11.1 mEq/L (5.0-15.0); Magnesium 2.2 mg/dL (1.6-2.4); Potassium 4.1 mEq/L (3.5-5.1)
[2024-12-29] MEDS: CIPROFLOXACIN HCL 500 MG TAB PO SCH (10:14)
--- NOTE | 2024-12-29 12:30 | P.PN ---
Date of Service: 12/29/24 Subjective: doing well, feeling better; still some weakness remains afebrile stallings in place ROS: 10 point ROS as noted above, otherwise negative Physical Exam: GEN: Alert, NAD CV: Regular rate and rhythm, 1+ b/l edema to knees Pulm: Nonlabored respirations on room air, clear bilaterally ABD: soft, nontender, nondistended Neuro: Normal speech, normal affect Problem List: Hypotension, transient Recurrent UTIs Hx of Bladder sling Generalized Weakness/frequent falls Recent intracranial Bleed Hypertension Hyperlipidemia Insomnia Hypotension, transient Recurrent UTIs Hx of Bladder sling Patient developed 102.4 fever on 12/26 evening. Patient hypotensive 80-90s at the time; +tachycardic, +leukocytosis 23.3 on multiple medications which could lower BP. Was dealing with some intermittent hypotension during hospitalization prior to rehab. has history of recurrent UTIs. Patient recently completed ~10 days of IV rocephin to treat Citrobacter koseri UTI. Denies urinary symptoms. Denies any constipation or diarrhea. Reports daily BM. blood cx (12/27): NGTD urine cx (12/27): Pseudomonas Aeruginosa resistant to Zosyn empiric zosyn (12/26-12/29) switched to oral ciprofloxacin given culture results (12/29-) lactate improved hypotension likely pre-renal s/p IV fluids. BP stable. No further episodes of hypotension afebrile, leukocytosis resolved Patient has follow up with Dr. Lombardi, urology on 01/08 plan to DC with indwelling cath with voiding trial on the . Generalized Weakness/frequent falls Recent intracranial Bleed continue PT Daily labs Hypertension Hyperlipidemia Insomnia continue home meds as appropriate Code: Full Dispo: Home Time Spent Managing Pts Care (In Minutes): 45
[2024-12-30 06:30] VITALS: BP 120/71; TEMP 97.6
--- NOTE | 2024-12-30 09:54 | P.PN ---
Date of Service: 12/30/24 Subjective: no acute events overnight clinically improved BP stable afebrile ROS: 10 point ROS as noted above, otherwise negative Physical Exam: GEN: Alert, NAD CV: Regular rate and rhythm, tace to 1+ b/l edema to knees Pulm: Nonlabored respirations on room air, clear bilaterally ABD: soft, nontender, nondistended Neuro: Normal speech, normal affect Problem List: Hypotension, transient Recurrent UTIs Hx of Bladder sling Generalized Weakness/frequent falls Recent intracranial Bleed Hypertension Hyperlipidemia Insomnia Hypotension, transient Recurrent UTIs Hx of Bladder sling Patient developed 102.4 fever on 12/26 evening. Patient hypotensive 80-90s at the time; +tachycardic, +leukocytosis 23.3 on multiple medications which could lower BP. Was dealing with some intermittent hypotension during hospitalization prior to rehab. has history of recurrent UTIs. Patient recently completed ~10 days of IV rocephin to treat Citrobacter koseri UTI. blood cx (12/27): NGTD urine cx (12/27): Pseudomonas Aeruginosa resistant to Zosyn empiric zosyn (12/26-12/29) switched to oral ciprofloxacin given culture results (12/29-) lactate improved s/p IV fluids. BP stable. No further episodes of hypotension afebrile, leukocytosis resolved Patient has follow up with Dr. Lombardi, urology on 01/08 plan to DC with indwelling cath with voiding trial on the . Recommend patient complete 10 more days of oral ciprofloxacin on discharge in addition to what she has already received to cover UTI. Generalized Weakness/frequent falls Recent intracranial Bleed continue PT Daily labs Hypertension Hyperlipidemia Insomnia continue home meds as appropriate Code: Full Dispo: Medically cleared for discharge Time Spent Managing Pts Care (In Minutes): 45
== END 2024-12-30 11:45 | disposition home health service (06) | DRG 949 ==
LOC: 5TH 21:26
PROVIDERS: ADMIT Psychiatry & Neurology Neurology with Special Qualifications in Child Neurology; ATTEND Psychiatry & Neurology Neurology with Special Qualifications in Child Neurology
PROC: 02HV33Z Insertion of Infusion Device into Superior Vena Cava, Percutaneous Approach (ICD-10-PCS; principal; 2024-12-23)
PROC: 3E04329 Introduction of Other Anti-infective into Central Vein, Percutaneous Approach (ICD-10-PCS; 2024-12-23)
DX: S06.5XAD Traumatic subdural hemorrhage with loss of consciousness status unknown, subsequent encounter (principal); E87.1 Hypo-osmolality and hyponatremia; N39.0 Urinary tract infection, site not specified; G47.00 Insomnia, unspecified; K21.9 Gastro-esophageal reflux disease without esophagitis; F41.9 Anxiety disorder, unspecified; E78.5 Hyperlipidemia, unspecified; I10 Essential (primary) hypertension; E87.6 Hypokalemia; R33.9 Retention of urine, unspecified; I95.9 Hypotension, unspecified; Z78.0 Asymptomatic menopausal state
CPT/HCPCS: 36415; 71045; 80048; 81001; 82040; 83605; 83735; 83880; 84134; 84145; 85025; 87040; 87077; 87086; 87088; 87186; 97110; 97112; 97116; 97161; 97165; 97530; 97542; A4216; J0696; J2003; J2543; J7030; J7040